=== PATIENT | male | born 1970 | race Caucasian/White ===

== ENCOUNTER 2016-08-28 15:55 | Emergency (ER) | payer BC ==
[~2016-08-28] VITALS: Ht 167.6 cm; Wt 84.4 kg
[~2016-08-28 15:55] MED LIST: LEVO200T PO; LEVO25TA PO
[2016-08-28 15:57] VITALS: TEMP 37.6; Ht 167.6 cm; Wt 84.4 kg
[2016-08-28] MEDS ORDERED: ONDANSETRON INJ 2 MG/ML 2 ML VIAL IV STA (16:19)
[2016-08-28] MEDS ORDERED: CEFTRIAXONE SOD INJ 1 GM in DEXTROSE 5% ADD-VANTAGE 50ML 50 ML IV STA (16:19)
[2016-08-28] MEDS ORDERED: MoRPHine SULFATE 4 MG/ML 1 ML CARP\\VIAL IV STA (16:19)
[2016-08-28] MEDS ORDERED: SODIUM CHLORIDE 0.9% 1000ML 1,000 ML IV ONE (16:30)
[2016-08-28] MEDS ORDERED: CEFTRIAXONE SOD INJ 1 GM ADDVIAL ONE (16:57)
--- NOTE | 2016-08-28 17:02 | DIAGNOSTIC IMAGING REPORT ---
RIGHT KNEE 3 VIEWS CLINICAL HISTORY: R knee infection Right COMPARISON: None. DISCUSSION: The bones and joint spaces appear intact. There is no evidence of fracture, dislocation or bony disease. Considerable pretibial and to lesser extent prepatellar soft tissue edema. IMPRESSION: Soft tissue edema. No acute bony abnormality Electronically signed by: Elliot Cool M.D. 08/28/2016 5:01 PM Dictated Date/Time: 08/28/2016 5:00 PM
[2016-08-28 17:08] LABS: BASO % 0.3 %; BASO ABS # 0.03 K/uL (0-0.2); COMPLETE YES; EOS % 1.3 %; HEMATOCRIT 42.3 % (42-52); IG% 0.2 %; LYMPH % 18.4 %; LYMPH ABS # 2.14 K/uL (1.2-3.4); MEAN CELL VOLUME 84.8 fL (80-100); MEAN CORPUSCULAR HEMOGLOBIN 29.3 pg (25-34); MEAN CORPUSCULAR HGB CONC 34.5 g/dl (32-36); MEAN PLATELET VOLUME 9.8 fL (7.4-10.4); MONO % 11.3 %; NEUT % 68.5 %; PLATELET COUNT 186 K/uL (130-400); RED BLOOD COUNT 4.99 M/uL (4.7-6.1); WHITE BLOOD COUNT 11.63 K/uL (4.8-10.8)
[2016-08-28] MEDS ORDERED: XYLOCAINE 1%/SOD BICARB 20 ML VIAL INFIL ONE (17:15)
[2016-08-28 17:28] LABS: BUN/CREATININE RATIO 11.7 (10-20); CREATININE 1.3 mg/dl (0.60-1.40); POTASSIUM 3.8 mmol/L (3.5-5.1)
[2016-08-28 18:00] VITALS: BP 151/79; PULSE 96; O2SAT 97
[2016-08-28] MEDS ORDERED: SULF800T23 PO (18:31)
[2016-08-28] MEDS ORDERED: OXYC-57 PO (18:31)
[2016-08-28] MEDS ORDERED: CEPH500C2 PO (18:31)
[2016-08-28] MEDS ORDERED: OXYCODONE/ACETAMINOPHEN 5-325 TAB PO ONE (18:45)
--- NOTE | 2016-08-28 20:49 | EMERGENCY ROOM VISIT NOTE ---
ED Visit Note First contact with patient: 16:02 CHIEF COMPLAINT: Right swollen knee. HISTORY OF PRESENT ILLNESS: Mr. Bonilla is an 45-year-old white male who ambulates into the ED accompanied by complaining of anterior right knee pain and swelling. 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 Last month he reports he developed swelling over the left anterior knee and drained the swelling after sticking a pin and squeezing his lesion. He goes on to report he noticed a hard tender area in 3 days ago. The area is slowly getting redder, larger, more painful and tender. He does not know of any skin injury preceding the redness but does note he has a lot of soft tissue injuries to his knees because of his job. He reports he came to the hospital today because he was feeling feverish, had a decreased appetite and was not sleeping well. Currently he describes his anterior knee pain as a throbbing sensation. He rates his discomfort 8/10. The pain is nonradiating. His pain worsens with palpation and ambulation. He has not identified any alleviating factors related to the pain. He has not taken a medication for pain prior to arrival at the hospital. He continues to have the associated symptoms as noted above and is also noted some redness over the medial aspect of the anterior knee. He denies other skin eruptions, other skin color changes, cough, wheezing, shortness of breath, chest pain, abdominal pain, nausea, vomiting, right lower extremity weakness/numbness/tingling. REVIEW OF SYSTEMS: All body systems were reviewed with the patient as noted above. PAST MEDICAL HISTORY: Status post surgeries to the lumbar spine, unspecified shoulder and appendicitis. CURRENT MEDICATION: Patient denies. ALLERGIES TO MEDICATION: Patient denies. SOCIAL HISTORY: Patient is currently employed; he feels safe in his home environment; he admits to chewing tobacco and alcohol use. PHYSICAL EXAM: Vital Signs: Date Time Temp Pulse Resp B/P Pulse Ox O2 Delivery O2 Flow Rate FiO2 08/28/16 18:00 96 16 151/79 97 Room Air 08/28/16 15:57 37.6 111 22 137/75 97 Room Air General: 45 year-old white male in moderate distress due to pain, nontoxic appearing, febrile and hemodynamically stable. Neurological: Awake, alert and oriented to person, place and time. Answering questions appropriately and following commands. Skin: Warm, dry and pink. Right Knee: There is an indurated area in the anterior aspect of the knee which measures about 4 cm in diameter. This area is fluctuant without pointing and no drainage. There is a zone of inflammation around it but no lymphangitis. Thorax: Lungs sounds are clear to auscultation and equal bilaterally with symmetrical chest wall movement. No wheezing, rales or rhonchi. No increased respiratory effort. Abdomen: Flat, soft and nontender. Positive bowel sounds in all quadrants. No guarding or rigidity. Right Lower Extremity: Please note soft tissue description above under SKIN. No tenderness over the hip, thigh, lower leg or foot. Patient's knee is in flexion due to pain and he cannot reach full extension and has minimal flexion. Should be noted that the anterior aspect of the knee is also covered with large callus because of his employment. Additionally there is moderate tenderness. I do not appreciate any laxity of the collateral or cruciate ligaments. Negative ballottement test. Positive patellar apprehension test. Unable to perform a bounce test or John's testing due to pain. Throughout the lower leg the skin was warm and pink and capillary refill is brisk. He was intact to light sensations. ED COURSE: Patient is assessed as noted above. Laboratory Testing: Test 08/28/16 17:00 Range/Units White Blood Count 11.63 4.8-10.8 K/uL Red Blood Count 4.99 4.7-6.1 M/uL Hemoglobin 14.6 14.0-18.0 g/dL Hematocrit 42.3 42-52 % Mean Corpuscular Volume 84.8 80-100 fL Mean Corpuscular Hemoglobin 29.3 25-34 pg Mean Corpuscular Hemoglobin Concent 34.5 32-36 g/dl Platelet Count 186 130-400 K/uL Mean Platelet Volume 9.8 7.4-10.4 fL Neutrophils (%) (Auto) 68.5 % Lymphocytes (%) (Auto) 18.4 % Monocytes (%) (Auto) 11.3 % Eosinophils (%) (Auto) 1.3 % Basophils (%) (Auto) 0.3 % Neutrophils # (Auto) 7.97 1.4-6.5 K/uL Lymphocytes # (Auto) 2.14 1.2-3.4 K/uL Monocytes # (Auto) 1.32 0.11-0.59 K/uL Eosinophils # (Auto) 0.15 0-0.5 K/uL Basophils # (Auto) 0.03 0-0.2 K/uL RDW Standard Deviation 38.9 36.4-46.3 fL RDW Coefficient of Variation 12.7 11.5-14.5 % Immature Granulocyte % (Auto) 0.2 % Immature Granulocyte # (Auto) 0.02 0.00-0.02 K/uL Sodium Level 142 136-145 mmol/L Potassium Level 3.8 3.5-5.1 mmol/L Chloride Level 107 98-107 mmol/L Carbon Dioxide Level 29 21-32 mmol/L Anion Gap 6.0 3-11 mmol/L Blood Urea Nitrogen 15 7-18 mg/dl Creatinine 1.30 0.60-1.40 mg/dl Est Creatinine Clear Calc Drug Dose 73.9 ml/min Estimated GFR () 76.9 Estimated GFR (Non- 66.4 BUN/Creatinine Ratio 11.7 10-20 Random Glucose 108 70-99 mg/dl Calcium Level 9.0 8.5-10.1 mg/dl Knee X-Rays: Was read by myself and the radiologist showing no acute fractures or dislocations. Moderate pretibial and prepatellar soft tissue edema. No joint effusion was noted. Incision and Drainage: Verbal consent was obtained after the risks and benefits were explained. The skin was prepped with betadine and a sterile field set. The area surrounding the abscess was anesthetized with 7.6 ml of 1% buffered lidocaine. The 2 areas of abscess was incised with scalpel. Blood and clear fluid was drained but no purulent material. The abscess cavity was sharply dissected with iris scissors and still no purulent material was found. Copious irrigation was performed using sterile saline. Hemostasis was achieved. A sterile dressing and Kaiser bandage was applied. No complications and the patient tolerated the procedure well. Patient was hydrated with normal saline, he received a total of 8 mg of morphine IV for pain and 4 mg of Zofran. Additionally he received 1 g of ceftriaxone IV for antibiotic coverage. Prior to departure he also received 1 Percocet tablet 5/325 mg tablets by mouth. Patient's case was reviewed with Dr. Hernández; we agreed on diagnostic approach, treatment, disposition and plan. Patient was instructed on nonweight bearing crutch use. Patient was educated about his condition and instructed on his treatment plan; he verbalized understanding and agreement with this plan. CLINICAL IMPRESSION: Right knee cellulitis. DISPOSITION: Patient discharged to home in stable condition accompanied by his ; prior to departure he was reassessed and rated his discomfort 11/18. PLAN: Patient was prescribed Keflex 500 mg 4 times a day and Bactrim DS 2 times a day for 10 days. Comfort measures including rest, ice, elevation, Kaiser bandage and splint use as well as a sliding pain medication scale of ibuprofen, acetaminophen and Percocet were discussed with the patient. Patient was warned on proper precautions with narcotic use in the state database was reviewed and no red flags were noted. Patient did report he had a follow-up appointment already scheduled with his PCP on Tuesday and I encouraged him to continue that appointment and if he was unable to keep it to return to the ED in 36-48 hours for recheck. Patient was encouraged return the ED sooner for uncontrolled pain, fevers, redness or red streaking outside of his Kaiser bandage or any new/concerning symptoms.
[2016-08-31] MEDS ORDERED: ASPEC81 PO (17:33)
[2016-08-31] MEDS ORDERED: OXYC-57 PO (17:33)
[2016-08-31] MEDS ORDERED: LPT20 PO (17:33)
[2016-08-31] MEDS ORDERED: SYN50 PO (17:33)
[2016-08-31] MEDS ORDERED: DOXY100C IV (18:24)
[2016-10-29] MEDS ORDERED: NAPR1TAB9 PO (15:11)
[2016-10-29] MEDS ORDERED: ATOR-22 PO (15:11)
[2016-10-29] MEDS ORDERED: LEVO50TA6 PO (15:11)
[2016-10-29] MEDS ORDERED: ASPI81TA28 PO (15:11)
[2016-10-29] MEDS ORDERED: TRAM-10 PO (16:03)
[2016-11-25] MEDS ORDERED: CYCL10TA6 PO (06:27)
[2016-11-25] MEDS ORDERED: OXYC-57 PO (08:35)
[2016-11-25] MEDS ORDERED: CEPH500C2 PO (08:35)
[2016-11-25] MEDS ORDERED: ASPI325T45 PO (08:35)
== END 2016-08-28 18:52 | disposition home or self-care (01) ==
LOC: C.EDB 15:56 → C.EDD 18:52
DX: L03.115 Cellulitis of right lower limb (principal); F17.200 Nicotine dependence, unspecified, uncomplicated

== ENCOUNTER 2016-08-29 22:15 | Inpatient (IN) | payer BC ==
[~2016-08-29] VITALS: Ht 167.6 cm; Wt 83.7 kg
[~2016-08-29 22:15] MED LIST changes: +CEPH500C2 PO; -LEVO200T PO; -LEVO25TA PO; +OXYC-57 PO; +SULF800T23 PO
[2016-08-29] MEDS ORDERED: ONDANSETRON INJ 2 MG/ML 2 ML VIAL IV STA (22:40)
[2016-08-29] MEDS ORDERED: HYDROmorphone INJ 1 MG/ML SYR IV STA (22:40)
[2016-08-29] MEDS ORDERED: SODIUM CHLORIDE 0.9% 1000ML 1,000 ML IV ONE (22:45)
[2016-08-29 23:25] LABS: BASO % 0.2 %; BASO ABS # 0.02 K/uL (0-0.2); COMPLETE YES; EOS % 2.7 %; HEMATOCRIT 40.2 % (42-52); IG% 0.1 %; LYMPH % 27.1 %; LYMPH ABS # 2.29 K/uL (1.2-3.4); MEAN CELL VOLUME 83.6 fL (80-100); MEAN CORPUSCULAR HEMOGLOBIN 28.3 pg (25-34); MEAN CORPUSCULAR HGB CONC 33.8 g/dl (32-36); MEAN PLATELET VOLUME 9.8 fL (7.4-10.4); MONO % 10.8 %; NEUT % 59.1 %; PLATELET COUNT 189 K/uL (130-400); RED BLOOD COUNT 4.81 M/uL (4.7-6.1); WHITE BLOOD COUNT 8.46 K/uL (4.8-10.8)
[2016-08-29 23:46] LABS: BUN/CREATININE RATIO 11.4 (10-20); CALCIUM 8.8 mg/dl (8.5-10.1); CREATININE 1.3 mg/dl (0.60-1.40); POTASSIUM 3.8 mmol/L (3.5-5.1)
[2016-08-29 23:49] LABS: C-REACTIVE PROTEIN 13.1 mg/dl (0-0.29)
[2016-08-30] MEDS ORDERED: PIPERACILLIN/TAZOBACTAM 4.5 GM/100ML D5W IV STA (00:05)
[2016-08-30 00:14] LABS: LYME DISEASE AB IGG NEG (NEG); LYME DISEASE AB IGM NEG (NEG)
[2016-08-30] MEDS ORDERED: SODIUM CHLORIDE 0.9% 1000ML 1,000 ML IV ONE (00:15)
[2016-08-30] MEDS ORDERED: SODIUM CHLORIDE 0.9% IV ONE (00:15)
[2016-08-30] MEDS ORDERED: DAPTOMYCIN IV ONE (00:15)
[2016-08-30 00:30] VITALS: BP 122/73; PULSE 86; TEMP 37; Ht 167.6 cm; Wt 83.7 kg
[2016-08-30 00:43] LABS: MAGNESIUM 2.3 mg/dl (1.8-2.4)
[2016-08-30 00:59] LABS: THYROID STIMULATING HORMONE 19.2 uIu/ml (0.300-4.500)
[2016-08-30] MEDS ORDERED: SODIUM CHLORIDE 0.45% 1000ML 1,000 ML IV SCH (01:00)
[2016-08-30] MEDS ORDERED: ONDANSETRON INJ 2 MG/ML 2 ML VIAL IV PRN (01:00)
[2016-08-30] MEDS ORDERED: KETOROLAC TROMETHAMINE 30 MG/ML VIAL IV PRN (01:00)
[2016-08-30] MEDS ORDERED: MoRPHine SULFATE 4 MG/ML 1 ML CARP\\VIAL IV PRN (01:00)
[2016-08-30] MEDS ORDERED: ACETAMINOPHEN 325 MG TAB PO PRN (01:00)
[2016-08-30] MEDS ORDERED: SODIUM CHLORIDE 0.45% 1000ML 1,000 ML IV ONE (02:15)
--- NOTE | 2016-08-30 02:30 | EMERGENCY ROOM VISIT NOTE ---
History First contact with patient: 22:24 Chief Complaint: SWELLING TO EXTREMITY Stated Complaint: SEPSIS History of Present Illness The patient is a 45 year old male who presents to the Emergency Room with complaints of worsening pain and swelling to his right knee and right lower extremity. The patient was seen and evaluated yesterday at this facility with similar complaints. The patient was found to have a cellulitis of the right knee and was placed on Bactrim and Keflex. The patient was given oxycodone and crutches and asked to return to the emergency department for reevaluation today. The patient states that he has persistent pain that worsens with bending of the knee. He does not report fever or chills at home. He does kneel on the ground for work, and this may be contributing to his symptoms. He rates his current discomfort an 8/10. Review of Systems More than 10 systems were reviewed and otherwise negative with the exception of history of present illness. Past Medical/Surgical History Medical Problems: (1) Bursitis, knee (2) Hypothyroid (3) Sepsis Surgical Problems: (1) S/P lumbar spinal fusion Family History TIAs FATHER Social History Smoking Status: Never Smoker Alcohol Use: occasionally Marital Status: Housing Status: lives with family Occupation Status: employed Current/Historical Medications Scheduled Cephalexin Monohydrate (Keflex), 500 MG PO QID Sulfa/Trimethoprim (Bactrim Ds 800MG/160MG), 1 TAB PO BID Scheduled PRN Oxycodone/Acetaminophen 5MG/325MG (Percocet 5MG/325MG), 1-2 TABS PO Q6H PRN for Pain Allergies Coded Allergies: Adhesives (Verified Allergy, Intermediate, KEITH SKIN, 08/29/16) Physical Exam Vital Signs Date Time Temp Pulse Resp B/P Pulse Ox O2 Delivery O2 Flow Rate FiO2 08/30/16 00:26 84 16 149/77 94 Room Air 08/29/16 22:17 37.1 106 18 132/80 97 Room Air Pain Rating (0-10): 4.0 Physical Exam VITALS: Vitals are noted on the nurse's note and reviewed by myself. Vital signs stable. GENERAL: Well-developed, well-nourished, and a white male who appears moderately uncomfortable but cooperative. HEAD: Normocephalic atraumatic. HEART: Regular rate and rhythm without murmurs gallops or rubs. LUNGS: Clear to auscultation bilaterally without wheezes, rales or rhonchi. No retractions or accessory muscle use. MUSCULOSKELETAL: There is a large area of cellulitis around the anterior right. This essentially covers the distal third of the right upper leg and the proximal third of the right lower leg. There is an area over the right tibial tuberosity that may be fluctuant. The patient does have some range of motion, however he is unable to fully bend the knee secondary to discomfort. No palpable cords appreciated. Neurovascular status is intact distally. NEURO: Patient was alert and oriented to person place and time. CN II through XII grossly intact. Medical Decision & Procedures Laboratory Results 08/29/16 23:09 Red Blood Count 4.81, Mean Corpuscular Volume 83.6, Mean Corpuscular Hemoglobin 28.3, Mean Corpuscular Hemoglobin Concent 33.8, Mean Platelet Volume 9.8, Neutrophils (%) (Auto) 59.1, Lymphocytes (%) (Auto) 27.1, Monocytes (%) (Auto) 10.8, Eosinophils (%) (Auto) 2.7, Basophils (%) (Auto) 0.2, Neutrophils # (Auto ) 5.00, Lymphocytes # (Auto) 2.29, Monocytes # (Auto) 0.91, Eosinophils # (Auto ) 0.23, Basophils # (Auto) 0.02 08/29/16 23:09 Test 08/29/16 23:09 White Blood Count 8.46 K/uL (4.8-10.8) Red Blood Count 4.81 M/uL (4.7-6.1) Hemoglobin 13.6 g/dL (14.0-18.0) Hematocrit 40.2 % (42-52) Mean Corpuscular Volume 83.6 fL (80-100) Mean Corpuscular Hemoglobin 28.3 pg (25-34) Mean Corpuscular Hemoglobin Concent 33.8 g/dl (32-36) Platelet Count 189 K/uL (130-400) Mean Platelet Volume 9.8 fL (7.4-10.4) Neutrophils (%) (Auto) 59.1 % Lymphocytes (%) (Auto) 27.1 % Monocytes (%) (Auto) 10.8 % Eosinophils (%) (Auto) 2.7 % Basophils (%) (Auto) 0.2 % Neutrophils # (Auto) 5.00 K/uL (1.4-6.5) Lymphocytes # (Auto) 2.29 K/uL (1.2-3.4) Monocytes # (Auto) 0.91 K/uL (0.11-0.59) Eosinophils # (Auto) 0.23 K/uL (0-0.5) Basophils # (Auto) 0.02 K/uL (0-0.2) RDW Standard Deviation 37.2 fL (36.4-46.3) RDW Coefficient of Variation 12.2 % (11.5-14.5) Immature Granulocyte % (Auto) 0.1 % Immature Granulocyte # (Auto) 0.01 K/uL (0.00-0.02) Erythrocyte Sedimentation Rate 33 mm/hr (0-14) Anion Gap 9.0 mmol/L (3-11) Est Creatinine Clear Calc Drug Dose 73.6 ml/min Estimated GFR () 76.9 Estimated GFR (Non- 66.4 BUN/Creatinine Ratio 11.4 (10-20) Calcium Level 8.8 mg/dl (8.5-10.1) Magnesium Level 2.3 mg/dl (1.8-2.4) Total Bilirubin 0.3 mg/dl (0.2-1) Aspartate Amino Transf (AST/SGOT) 16 U/L (15-37) Alanine Aminotransferase (ALT/SGPT) 27 U/L (12-78) Alkaline Phosphatase 94 U/L (45-117) C-Reactive Protein 13.10 mg/dl (0-0.29) Total Protein 7.3 gm/dl (6.4-8.2) Albumin 3.6 gm/dl (3.4-5.0) Globulin 3.7 gm/dl (2.5-4.0) Albumin/Globulin Ratio 1.0 (0.9-2) Thyroid Stimulating Hormone (TSH) 19.200 uIu/ml (0.300-4.500) Lyme Disease IgG Antibody NEG (NEG) Lyme Disease IgM Antibody NEG (NEG) Medications Administered Medications (Trade) Dose Ordered Sig/Tsering Route Start Time Stop Time Status Last Admin Dose Admin Sodium Chloride (Nss 1000ml) 1,000 ml @ 999 mls/hr Q1H1M ONCE IV 08/29/16 22:45 08/29/16 23:45 DC 08/29/16 23:15 999 MLS/HR Hydromorphone HCl (Dilaudid Inj) 1 mg NOW STAT IV 08/29/16 22:40 08/29/16 22:42 DC 08/29/16 23:15 1 MG Ondansetron HCl (Zofran Inj) 4 mg NOW STAT IV 08/29/16 22:40 08/29/16 22:42 DC 08/29/16 23:15 4 MG Piperacillin Sod/ Tazobactam Sod (Zosyn Iv) 4.5 gm NOW STAT IV 08/30/16 00:05 08/30/16 00:06 DC 08/30/16 00:24 4.5 GM ED Course Physical exam and history were performed. Nursing notes and EMR were reviewed. Patient appears to have a worsening right lower extremity cellulitis when compared to yesterday. On examination the patient appears to have a fairly large area of cellulitis with possible fluctuant area. I attempted to de-roof this area, but did not achieve results with any purulent material. Incision and drainage was attempted yesterday with no results either. I am unsure if the infection is deep, but additional I and D was not attempted. IV access was then established and labs were obtained. The patient was hydrated with normal saline and given IV Dilaudid for comfort. The patient's blood work is as above and was reviewed. While he does not have an elevated white blood cell count his inflammatory markers are markedly elevated. Additionally his lactic acid is elevated as well with blood cultures pending. I have concern the patient has sepsis secondary to his infection and he was started on IV daptomycin and IV Zosyn here in the department. The case was discussed with the on-call [facility] hospitalist, who agreed to evaluate the patient here in the department. Please see their dictation for further patient course, plan, and disposition. The chart was completed utilizing [employer] Speech Voice Recognition Software. Grammatical errors, random word insertions, pronoun errors, and incomplete sentences are an occasional consequence of this system due to software limitations, ambient noise, and hardware issues. Any formal questions or concerns about the content, text, or information contained within the body of this dictation should be directly addressed to the provider for clarification. . Medical Decision Differential diagnosis: Etiologies such as sepsis, UTI, pneumonia, metabolic, electrolyte abnormalities , cardiac sources, intracerebral event, toxicologic, neurologic, as well as others were entertained. Impression Primary Impression: Sepsis Additional Impression: Swelling of right extremity Departure Information Dispostion Still a Patient Condition FAIR Referrals Mitra Valles D.O. (PCP) Forms WORK / SCHOOL INSTRUCTIONS, HOME CARE DOCUMENTATION FORM, IMPORTANT VISIT INFORMATION Patient Instructions My [facility] Problem Qualifiers
[2016-08-30] MEDS: DOXYCYCLINE IV 100 MG in DEXTROSE 5% 100ML 100 ML IV SCH ×2 (03:55→16:52)
--- NOTE | 2016-08-30 04:37 | HISTORY & PHYSICAL EXAMINATION ---
DATE OF ADMISSION: 08/30/2016 PRIMARY CARE DOCTOR: Dr. Valles. CHIEF COMPLAINT: Right knee pain and swelling. HISTORY OF PRESENT ILLNESS: History obtained from patient and records. Medical history significant for TIA, hypothyroidism. Recent confinement October 2013 for possible TIA. PX dcd on ASA and Lipitor. Few days ago, patient noted right knee swelling with achy pain, redness. Seen at the Emergency Room. X-ray showed soft tissue edema. Impression was right knee cellulitis. Patient discharged on Keflex, Bactrim, compliant with meds. Worsening swelling, worse with moving around, low grade fever at home. MEDICAL HISTORY: As above. SURGERIES: back surgery, shoulder surgery, appendectomy HOME MEDICATIONS: Include Bactrim, Keflex, Percocet (Levothyroxine 200 mcg, ASA, Lipitor as per outpx records) ALLERGIES: OXYCODONE, ADHESIVE. FAMILY HISTORY: TIA and COPD. PERSONAL AND SOCIAL HISTORY: Past tobacco abuse. occ intake of alcoholic beverages. [employer] work. REVIEW OF SYSTEMS: As per HPI, all other ROS negative. PHYSICAL EXAMINATION: VITAL SIGNS: Blood pressure was noted to be 132/80, pulse rate 106, RR 18, T 37, O2 sats 97 on room air. GENERAL: Noted to be slightly uncomfortable, no respiratory distress, looks older for stated age. SKIN: Normal color. HEENT: Alopecia. [place] palpebral conjunctivae. Dry mucosa. NECK: No JVD. supple CHEST: Clear to auscultation. HEART: Regular rate and rhythm. ABDOMEN: Soft. EXTREMITIES: Tender swelling on the anterior aspect of the knee with some extension to the sides. Some limitation with stretch, warm to touch. NEUROLOGIC: No gross focality. LABS: Hemoglobin was noted to be 13.6, hematocrit 48.2, white cells 8.4, platelets 189. Sodium 140 BUN 50, creatinine 1.3, glucose 100 TSH 19 Initial lactic acid 2.4. ASSESSMENT: 1. RLE swelling prepatellar bursitis with secondary cellulitis failed outpatient treatment patient not septic. Rule out deep venous thrombosis. 2. Hypothyroidism. TSH elevated. medication non-compliance 3. hx Transient ischemic attack px admits to ASA, statin non-compliance PLAN: GMF analgesia Doxycycline trial local measures for swelling Orthopedics consult RE R knee swelling RLE Dopplers to rule out DVT. Px agreeable to resuming prior ASA, statin, and Levothyroxine home meds TSH recheck outpx next month DVT prophylaxis, Lovenox subQ. Full code. MTDD
[2016-08-30] MEDS: LEVOTHYROXINE 50 MCG TAB PO SCH (05:45)
[2016-08-30] MEDS: IBUPROFEN 200 MG TAB PO PRN ×2 (05:46→14:12)
[2016-08-30] MEDS ORDERED: LEVOTHYROXINE 200 MCG TAB PO SCH (06:30)
[2016-08-30 06:43] LABS: BASO % 0.4 %; BASO ABS # 0.03 K/uL (0-0.2); COMPLETE YES; EOS % 2.1 %; HEMATOCRIT 37.7 % (42-52); IG% 0.1 %; LYMPH % 33.9 %; LYMPH ABS # 2.77 K/uL (1.2-3.4); MEAN CELL VOLUME 84.5 fL (80-100); MEAN CORPUSCULAR HEMOGLOBIN 28.7 pg (25-34); MONO % 8.8 %; NEUT % 54.7 %; PLATELET COUNT 163 K/uL (130-400); RED BLOOD COUNT 4.46 M/uL (4.7-6.1); WHITE BLOOD COUNT 8.17 K/uL (4.8-10.8)
[2016-08-30 06:52] LABS: PROTHROMBIN TIME (PATIENT) 11.1 SECONDS (9.0-12.0)
--- NOTE | 2016-08-30 07:22 | DIAGNOSTIC IMAGING REPORT ---
RIGHT LOWER EXTREMITY VENOUS DOPPLER CLINICAL HISTORY: Right lower extremity swelling. COMPARISON STUDY: No previous studies for comparison. TECHNIQUE: Sonography of the deep venous system of the right lower extremity was performed. Compression and augmentation were evaluated. FINDINGS: The common femoral, superficial femoral and popliteal veins were compressible. Augmentation was normal. Flow was shown within the deep calf vessels. IMPRESSION: No evidence of deep venous thrombus within the right lower extremity. Electronically signed by: Sameer Addison M.D. 08/30/2016 7:21 AM Dictated Date/Time: 08/30/2016 7:20 AM
[2016-08-30 07:51] VITALS: BP 106/69; PULSE 67; TEMP 36.5; O2SAT 95
[2016-08-30 08:00] VITALS: O2SAT 95
[2016-08-30] MEDS: ATORVASTATIN 20 MG TAB PO SCH (08:07)
[2016-08-30] MEDS: ASPIRIN 81 MG ECTAB PO SCH (08:07)
[2016-08-30] MEDS: ENOXAPARIN 40 MG/0.4 ML SYR SQ SCH (10:57)
[2016-08-30] MEDS ORDERED: NURSING VERBAL MED ORDER ONE (13:15)
--- NOTE | 2016-08-30 14:40 | Progress Note ---
Medicine Progress Note Date & Time of Visit: August 30, 2016 at 14:16. Subjective Pt was seen and examined Lying in bed with no distress Pt said that the pain in the right knee slightly improves denies any chest pain, palpitation, dizziness and sob Objective Last 8 Hrs Date Time Temp Pulse Resp B/P Pulse Ox O2 Delivery O2 Flow Rate FiO2 08/30/16 08:00 95 08/30/16 07:51 36.5 67 18 106/69 95 Physical Exam: General- No acute distress Head- atraumatic Eyes- PERRL, EOMI ENT- oropharynx clear Neck- supple, no JVD Lungs- clear to auscultation, No wheezing Heart- regular rhythm; no murmur Abdomen- normal bowel sounds, soft Extremities- no calf tenderness, right knee tenderness and swelling Neuro- alert, oriented x 3; PERRL, EOMI; no facial palsy; no dysarthria Skin- warm & dry Laboratory Results: Last 24 Hours Test 08/29/16 23:09 08/30/16 01:10 08/30/16 06:35 White Blood Count 8.46 K/uL 8.17 K/uL Red Blood Count 4.81 M/uL 4.46 M/uL Hemoglobin 13.6 g/dL 12.8 g/dL Hematocrit 40.2 % 37.7 % Mean Corpuscular Volume 83.6 fL 84.5 fL Mean Corpuscular Hemoglobin 28.3 pg 28.7 pg Mean Corpuscular Hemoglobin Concent 33.8 g/dl 34.0 g/dl Platelet Count 189 K/uL 163 K/uL Mean Platelet Volume 9.8 fL 10.0 fL Neutrophils (%) (Auto) 59.1 % 54.7 % Lymphocytes (%) (Auto) 27.1 % 33.9 % Monocytes (%) (Auto) 10.8 % 8.8 % Eosinophils (%) (Auto) 2.7 % 2.1 % Basophils (%) (Auto) 0.2 % 0.4 % Neutrophils # (Auto) 5.00 K/uL 4.47 K/uL Lymphocytes # (Auto) 2.29 K/uL 2.77 K/uL Monocytes # (Auto) 0.91 K/uL 0.72 K/uL Eosinophils # (Auto) 0.23 K/uL 0.17 K/uL Basophils # (Auto) 0.02 K/uL 0.03 K/uL RDW Standard Deviation 37.2 fL 38.3 fL RDW Coefficient of Variation 12.2 % 12.4 % Immature Granulocyte % (Auto) 0.1 % 0.1 % Immature Granulocyte # (Auto) 0.01 K/uL 0.01 K/uL Erythrocyte Sedimentation Rate 33 mm/hr Sodium Level 143 mmol/L Potassium Level 3.8 mmol/L Chloride Level 107 mmol/L Carbon Dioxide Level 27 mmol/L Anion Gap 9.0 mmol/L Blood Urea Nitrogen 15 mg/dl Creatinine 1.30 mg/dl Est Creatinine Clear Calc Drug Dose 73.6 ml/min Estimated GFR () 76.9 Estimated GFR (Non- 66.4 BUN/Creatinine Ratio 11.4 Random Glucose 127 mg/dl Lactic Acid Level 2.4 mmol/L 1.4 mmol/L Calcium Level 8.8 mg/dl Magnesium Level 2.3 mg/dl Total Bilirubin 0.3 mg/dl Aspartate Amino Transf (AST/SGOT) 16 U/L Alanine Aminotransferase (ALT/SGPT) 27 U/L Alkaline Phosphatase 94 U/L C-Reactive Protein 13.10 mg/dl Total Protein 7.3 gm/dl Albumin 3.6 gm/dl Globulin 3.7 gm/dl Albumin/Globulin Ratio 1.0 Thyroid Stimulating Hormone (TSH) 19.200 uIu/ml Thyroxine (T4) 4.6 mcg/dl Lyme Disease IgG Antibody NEG Lyme Disease IgM Antibody NEG Prothrombin Time 11.1 SECONDS Prothromb Time International Ratio 1.0 Date/Time Source Procedure Growth Status 08/29/16 23:09 Blood Blood Culture Pending Received 08/29/16 23:00 Blood Blood Culture Pending Received Assessment & Plan Right knee pain and swelling Possible due to prepatellar bursitis with possible secondary cellulitis Lactic acid elevated on admission Afebrile and no leukocytosis Elevated ESR blood cx pending Received IV Zosyn and daptomycin in the ER He had Incision and Drainage done on 08/28: blood and clear fluid was drained but no purulent material Starting on Doxycycline Continue pain control prn venous doppler of LE negative for DVT Ortho consulting- Pending . Hypothyroidism. TSH 19 Non compliant ( has not been taking levothyroxine) starting on levothyroxine 50mg check TSH in 6 to 8 weeks with PCP Hx TIA continue asa, non compliance with statin continue statin stable DVT px on lovenox subq CODE STATUS FULL CODE Consultants: Ortho Current Inpatient Medications: Current Inpatient Medications Medications (Trade) Dose Ordered Sig/Tsering Route Start Time Stop Time Status Last Admin Dose Admin Doxycycline Hyclate/Dextrose (Vibramycin IV/ D5 100ml) 110 ml @ 50 mls/hr Q12H IV 08/30/16 04:00 09/09/16 03:59 08/30/16 03:55 50 MLS/HR Ibuprofen (Advil Tab) 400 mg Q6H PRN PO 08/30/16 01:00 09/29/16 00:59 08/30/16 14:12 400 MG Ketorolac Tromethamine (Toradol Inj) 30 mg Q6H PRN IV 08/30/16 01:00 09/04/16 00:59 08/30/16 10:56 30 MG Morphine Sulfate (MoRPHine SULFATE INJ) 4 mg Q6H PRN IV 08/30/16 01:00 09/13/16 00:59 Ondansetron HCl (Zofran Inj) 4 mg Q6H PRN IV 08/30/16 01:00 09/29/16 00:59 Oxycodone/ Acetaminophen (Percocet 5-325mg Tab) pain not relieved by ot... Q6H PRN PO 08/30/16 01:00 09/13/16 00:59 Enoxaparin Sodium (Lovenox Inj) 40 mg Q24H SQ 08/30/16 09:00 09/29/16 08:59 08/30/16 10:57 40 MG Acetaminophen (Tylenol Tab) 650 mg Q4H PRN PO 08/30/16 01:00 09/29/16 00:59 Aspirin (Ecotrin Tab) 81 mg QAM PO 08/30/16 09:00 09/29/16 08:59 08/30/16 08:07 81 MG Levothyroxine Sodium (Synthroid Tab) 50 mcg DAILYBB PO 08/30/16 06:30 09/29/16 06:29 08/30/16 05:45 50 MCG Atorvastatin Calcium (Lipitor Tab) 20 mg QAM PO 08/30/16 09:00 09/29/16 08:59 08/30/16 08:07 20 MG
[2016-08-30 15:51] VITALS: BP 125/77; PULSE 75; TEMP 36.6; O2SAT 97
--- NOTE | 2016-08-31 00:39 | ORTHOPEDIC CONSULTATION ---
DATE OF CONSULTATION: 08/30/2016 CHIEF COMPLAINT: Right knee pain and swelling. 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 The right knee which is in question began swelling and more painful a few days prior. Apparently there was an attempted incision and drainage in the Emergency Room on 08/28/2016. The patient was started on Keflex and Bactrim, but did not improve over a period of 24 hours and was admitted last night for increased cellulitis of the leg. MEDICAL AND SURGICAL HISTORY: See recent admission history and physical. ALLERGIES: OXYCODONE. PHYSICAL EXAMINATION: The patient is lying comfortably in bed. He has a Band-Aid over the knee at this point. Inspection of the skin at this time shows significant decrease in cellulitis in the thigh and the lower leg (family also notes significant improvement in cellulitis in the last 12 hours). There is a very thickened prepatellar bursa with thickened material, mild amount of fluctuance. I cannot express any fluid. It is mildly red. Knee shows active range of motion from 0 to about 100 with only mild discomfort. Neurological and vascular functions are intact. IMPRESSION: Probable septic prepatellar bursitis. PLAN: At this point, the patient seems to have responded very well to just a few doses of IV antibiotics (it is like he is on this likely). I would recommend treating him for another 24 hours as an inpatient. If he continues to improve with IV antibiotics, would consider an outpatient course of 7-10 days of IV antibiotics. If the patient regresses at any point, he would need open excision and drainage of the prepatellar bursa. However, again at this time based on the response to 2 doses of medication compared to his outpatient treatment, I feel that there is a good chance he will resolve with just IV treatment. We will follow him during the hospital stay with you. Thank you for this consult. MARILYN
[2016-08-31 01:11] VITALS: BP 122/76; PULSE 65; TEMP 36.8; O2SAT 95
[2016-08-31] MEDS: DOXYCYCLINE IV 100 MG in DEXTROSE 5% 100ML 100 ML IV SCH ×2 (03:14→15:52)
[2016-08-31] MEDS: LEVOTHYROXINE 50 MCG TAB PO SCH (05:53)
[2016-08-31 07:28] VITALS: BP 119/73; PULSE 68; TEMP 36.8; O2SAT 97
[2016-08-31] MEDS: ATORVASTATIN 20 MG TAB PO SCH (07:47)
[2016-08-31] MEDS: ASPIRIN 81 MG ECTAB PO SCH (07:47)
[2016-08-31] MEDS: ENOXAPARIN 40 MG/0.4 ML SYR SQ SCH (07:47)
[2016-08-31 08:00] VITALS: O2SAT 97
--- NOTE | 2016-08-31 15:26 | Orthopedic Progress Note ---
Orthopedic Progress Note Date of Service August 31, 2016. Subjective Reports: feeling well, Denies: SOB, calf pain, chest pain, light headedness, nausea / vomiting Additional Notes: SEEMS TO BE RESPONDING WELL TO IV ABX. SWELLING AND REDNESS IMPROVED TODAY. HE HAS A PINHOLE OPENING WITH SOME MILD BLOODY DRAINAGE. Objective calves soft nontender, N/V intact, A&O x3, toes mobile MODERATE EDEMA OF THE RIGHT PREPATELLAR BURSA. NO ERYTHEMA TODAY. SCANT DRAINAGE ON BANDAGE. NO PURULENCE NOTED. ROM IMPROVING. Date Time Temp Pulse Resp B/P Pulse Ox O2 Delivery O2 Flow Rate FiO2 08/31/16 08:00 97 08/31/16 07:28 36.8 68 18 119/73 97 08/31/16 01:11 36.8 65 18 122/76 95 Room Air 08/31/16 00:00 Room Air 08/30/16 16:00 Room Air 08/30/16 15:51 36.6 75 18 125/77 97 Room Air Assessment & Plan Assessment: PREPATELLAR BURSITIS Plan: RESPONDING TO IV ANTIBIOTICS PATIENT IS SET UP WITH [facility] FOR 7 DAYS OF HOME IV'S LIKELY DISCHARGE TO HOME TODAY. CAN FOLLOW UP WITH ORTHO ON PRN BASIS. WILL SIGN OFF. THANK YOU FOR THE CONSULTATION.
[2016-08-31] MEDS: OXYCODONE/ACETAMINOPHEN 5-325 TAB PO PRN ×2 (15:52→17:19)
--- NOTE | 2016-08-31 17:20 | Progress Note ---
Medicine Progress Note Date & Time of Visit: August 31, 2016 at 17:09. Subjective Pt was seen and examined Sitting in bed comfortable with no distress working in his laptop Pt said that he feels ok the redness and the swelling improved significantly Pt said that the pain is much better Denies any chest pain, palpitation, dizziness and SOB Objective Physical Exam: General- No acute distress Head- atraumatic Eyes- PERRL, EOMI ENT- oropharynx clear Neck- supple, no JVD Lungs- clear to auscultation, No wheezing Heart- regular rhythm; no murmur Abdomen- normal bowel sounds, soft Extremities- no calf tenderness, right knee tenderness and swelling Neuro- alert, oriented x 3; PERRL, EOMI; no facial palsy; no dysarthria Skin- warm & dry Assessment & Plan Right knee pain and swelling Possible due to prepatellar bursitis with possible secondary cellulitis Lactic acid elevated on admission Afebrile and no leukocytosis Elevated ESR blood cx pending Received IV Zosyn and daptomycin in the ER He had Incision and Drainage done on 08/28: blood and clear fluid was drained but no purulent material Starting on Doxycycline Continue pain control prn venous doppler of LE negative for DVT Ortho consulting- Pending 08/31 Swelling and redness improved significantly afebrile Ortho on board recommended current management Continue IV doxycycline will continue IV doxycycline for 7 to 10 days Picc line placed for outpatient infusion transplant case manager will arranged for the home abx infusion continue pain control prn Blood cx no growth so far clinically improved follow up with ortho prn if not improved or condition worsening Hypothyroidism. TSH 19 Non compliant ( has not been taking levothyroxine) starting on levothyroxine 50mg check TSH in 6 to 8 weeks with PCP Hx TIA continue asa, non compliance with statin continue statin stable DVT px on lovenox subq CODE STATUS FULL CODE Consultants: Ortho Current Inpatient Medications: Current Inpatient Medications Medications (Trade) Dose Ordered Sig/Tsering Route Start Time Stop Time Status Last Admin Dose Admin Doxycycline Hyclate/Dextrose (Vibramycin IV/ D5 100ml) 110 ml @ 50 mls/hr Q12H IV 08/30/16 04:00 09/09/16 03:59 08/31/16 15:52 50 MLS/HR Ibuprofen (Advil Tab) 400 mg Q6H PRN PO 08/30/16 01:00 09/29/16 00:59 08/30/16 14:12 400 MG Ketorolac Tromethamine (Toradol Inj) 30 mg Q6H PRN IV 08/30/16 01:00 09/04/16 00:59 08/30/16 10:56 30 MG Morphine Sulfate (MoRPHine SULFATE INJ) 4 mg Q6H PRN IV 08/30/16 01:00 09/13/16 00:59 Ondansetron HCl (Zofran Inj) 4 mg Q6H PRN IV 08/30/16 01:00 09/29/16 00:59 Oxycodone/ Acetaminophen (Percocet 5-325mg Tab) pain not relieved by ot... Q6H PRN PO 08/30/16 01:00 09/13/16 00:59 08/31/16 15:52 1 TAB Enoxaparin Sodium (Lovenox Inj) 40 mg Q24H SQ 08/30/16 09:00 09/29/16 08:59 08/31/16 07:47 40 MG Acetaminophen (Tylenol Tab) 650 mg Q4H PRN PO 08/30/16 01:00 09/29/16 00:59 Aspirin (Ecotrin Tab) 81 mg QAM PO 08/30/16 09:00 09/29/16 08:59 08/31/16 07:47 81 MG Levothyroxine Sodium (Synthroid Tab) 50 mcg DAILYBB PO 08/30/16 06:30 09/29/16 06:29 08/31/16 05:53 50 MCG Atorvastatin Calcium (Lipitor Tab) 20 mg QAM PO 08/30/16 09:00 09/29/16 08:59 08/31/16 07:47 20 MG
[2016-08-31] MEDS ORDERED: SYN50 PO (17:33)
[2016-08-31] MEDS ORDERED: OXYC-57 PO (17:33)
[2016-08-31] MEDS ORDERED: LPT20 PO (17:33)
[2016-08-31] MEDS ORDERED: ASPEC81 PO (17:33)
--- NOTE | 2016-08-31 17:43 | Discharge Instructions ---
Discharge Instructions Date of Service August 31, 2016. Admission Reason for Admission: Cellulitis Discharge Discharge Diagnosis / Problem: Right knee cellulitis, Hypothyroidism, Dyslipidemia Discharge Goals Goal(s): Decrease discomfort, Improve function, Increase independence, Improve disease control Activity Recommendations Activity Limitations: resume your previous activity . Instructions / Follow-Up Instructions / Follow-Up Follow up with your Primary care provider Dr. Sierra on 09/02 @ 2 Pm Continue IV doxycycline BID for 7 days (dealership manager arranged for the antibiotic IV infusion) Follow up with ortho as needed You need to take your thyroid medication. your TSH was very high Check TSH in a few weeks (Your physician will order it) Restart your cholesterol medication ( Monitor liver enzymes) Current Hospital Diet Patient's current hospital diet: Regular Diet Discharge Diet Recommended Diet: AHA Diet (Heart Healthy) Pending Studies Studies pending at discharge: yes List of pending studies: Final blood cx Medical Emergencies . Who to Call and When: Medical Emergencies: If at any time you feel your situation is an emergency, please call 911 immediately. . Non-Emergent Contact Non-Emergency issues call your: Primary Care Provider Call Non-Emergent contact if: you have a fever, your pain is not controlled, your pain is worsening, you have any medication questions . . "Provider Documentation" section prepared by Lynne Prado. . VTE Core Measure Inpt VTE Proph given/why not?: Enoxaparin (Lovenox) [place] Drug Monitoring Program Search Results: patient reviewed within database
[2016-08-31 18:10] VITALS: BP 119/73; PULSE 68; TEMP 36.8; O2SAT 97
[2016-08-31] MEDS ORDERED: DOXY100C IV (18:24)
--- NOTE | 2016-09-07 00:26 | Discharge Summary ---
Discharge Summary Date of Service September 07, 2016. Discharge Summary Admission Date: August 30, 2016 at 00:32 Discharge Date: August 31, 2016 Discharge Disposition: Home with services Principal Diagnosis: Right knee cellulitis Secondary Diagnoses/Problems: Hypothyroidism Dyslipidemia Procedures: RIGHT LOWER EXTREMITY VENOUS DOPPLER CLINICAL HISTORY: Right lower extremity swelling. COMPARISON STUDY: No previous studies for comparison. TECHNIQUE: Sonography of the deep venous system of the right lower extremity was performed. Compression and augmentation were evaluated. FINDINGS: The common femoral, superficial femoral and popliteal veins were compressible. Augmentation was normal. Flow was shown within the deep calf vessels. IMPRESSION: No evidence of deep venous thrombus within the right lower extremity. Electronically signed by: Sameer Addison M.D. 08/30/2016 7:21 AM Dictated Date/Time: 08/30/2016 7:20 AM Consultations: Ortho Medication Reconciliation New Medications: Aspirin (Aspirin EC Low Dose) 81 Mg Ectab 81 MG PO QAM for 30 Days Atorvastatin (Atorvastatin Calcium) 20 Mg Tab 20 MG PO QAM for 30 Days, #30 TAB Levothyroxine Sodium (Synthroid) 50 Mcg Tab 50 MCG PO DAILYBB for 30 Days, TAB Changed Medications: Oxycodone/Acetaminophen 5MG/325MG (Percocet 5MG/325MG) Tab 1-2 TABS PO Q8H PRN for Pain for 4 Days, #12 TAB (Changed from: Q6H; 24; Removed Instructions) Discontinued Medications: Cephalexin Monohydrate (Keflex) 500 Mg Cap 500 MG PO QID for 10 Days, #40 CAP Sulfa/Trimethoprim (Bactrim Ds 800MG/160MG) Tab 1 TAB PO BID for 10 Days, #20 TAB Admission Information HPI (per Admitting provider): CHIEF COMPLAINT: Right knee pain and swelling. HISTORY OF PRESENT ILLNESS: History obtained from patient and records. Medical history significant for TIA, hypothyroidism. Recent confinement October 2013 for possible TIA. PX dcd on ASA and Lipitor. Few days ago, patient noted right knee swelling with achy pain, redness. Seen at the Emergency Room. X-ray showed soft tissue edema. Impression was right knee cellulitis. Patient discharged on Keflex, Bactrim, compliant with meds. Worsening swelling, worse with moving around, low grade fever at home. Physical Exam (per Admitting): VITAL SIGNS: Blood pressure was noted to be 132/80, pulse rate 106, RR 18, T 37, O2 sats 97 on room air. GENERAL: Noted to be slightly uncomfortable, no respiratory distress, looks older for stated age. SKIN: Normal color. HEENT: Alopecia. [place] palpebral conjunctivae. Dry mucosa. NECK: No JVD. supple CHEST: Clear to auscultation. HEART: Regular rate and rhythm. ABDOMEN: Soft. EXTREMITIES: Tender swelling on the anterior aspect of the knee with some extension to the sides. Some limitation with stretch, warm to touch. NEUROLOGIC: No gross focality. Hospital Course Right knee pain and swelling Possible due to prepatellar bursitis with possible secondary cellulitis Lactic acid elevated on admission Afebrile and no leukocytosis Elevated ESR blood cx pending Received IV Zosyn and daptomycin in the ER He had Incision and Drainage done on 08/28: blood and clear fluid was drained but no purulent material Starting on Doxycycline Continue pain control prn venous doppler of LE negative for DVT Ortho consulting- Pending 08/31 Swelling and redness improved significantly afebrile Ortho on board recommended current management Continue IV doxycycline will continue IV doxycycline for 7 to 10 days Picc line placed for outpatient infusion lining caser will arranged for the home abx infusion continue pain control prn Blood cx no growth so far clinically improved follow up with ortho prn if not improved or condition worsening Hypothyroidism. TSH 19 Non compliant ( has not been taking levothyroxine) starting on levothyroxine 50mg check TSH in 6 to 8 weeks with PCP Hx TIA continue asa, non compliance with statin continue statin stable DVT px on lovenox subq CODE STATUS FULL CODE Total time spent on discharge = 35 MINUTES This includes examination of the patient, discharge planning, medication reconciliation, and communication with other providers. Discharge Instructions Discharge Instructions Date of Service August 31, 2016. Admission Reason for Admission: Cellulitis Discharge Discharge Diagnosis / Problem: Right knee cellulitis, Hypothyroidism, Dyslipidemia Discharge Goals Goal(s): Decrease discomfort, Improve function, Increase independence, Improve disease control Activity Recommendations Activity Limitations: resume your previous activity . Instructions / Follow-Up Instructions / Follow-Up Follow up with your Primary care provider Dr. Sierra on 09/02 @ 2 Pm Continue IV doxycycline BID for 7 days (imaging center manager arranged for the antibiotic IV infusion) Follow up with ortho as needed You need to take your thyroid medication. your TSH was very high Check TSH in a few weeks (Your physician will order it) Restart your cholesterol medication ( Monitor liver enzymes) Current Hospital Diet Patient's current hospital diet: Regular Diet Discharge Diet Recommended Diet: AHA Diet (Heart Healthy) Pending Studies Studies pending at discharge: yes List of pending studies: Final blood cx Medical Emergencies . Who to Call and When: Medical Emergencies: If at any time you feel your situation is an emergency, please call 911 immediately. . Non-Emergent Contact Non-Emergency issues call your: Primary Care Provider Call Non-Emergent contact if: you have a fever, your pain is not controlled, your pain is worsening, you have any medication questions . . "Provider Documentation" section prepared by Lynne Prado. . VTE Core Measure Inpt VTE Proph given/why not?: Enoxaparin (Lovenox)[facility] Drug Monitoring Program Search Results: patient reviewed within database Additional Copies To Harlan Sierra M.D.
[2016-10-29] MEDS ORDERED: ASPI81TA28 PO (15:11)
[2016-10-29] MEDS ORDERED: ATOR-22 PO (15:11)
[2016-10-29] MEDS ORDERED: LEVO50TA6 PO (15:11)
[2016-10-29] MEDS ORDERED: NAPR1TAB9 PO (15:11)
[2016-10-29] MEDS ORDERED: TRAM-10 PO (16:03)
[2016-11-25] MEDS ORDERED: CYCL10TA6 PO (06:27)
[2016-11-25] MEDS ORDERED: CEPH500C2 PO (08:35)
[2016-11-25] MEDS ORDERED: OXYC-57 PO (08:35)
[2016-11-25] MEDS ORDERED: ASPI325T45 PO (08:35)
== END 2016-08-31 19:20 | disposition home health service (06) | DRG 558 ==
LOC: ENRESERVDT → ENRESERVTM → C.EDB 22:16 → C.MS2W 08-30 00:32
PROVIDERS: ADMIT Internal Medicine; ATTEND Internal Medicine
DX: M70.41 Prepatellar bursitis, right knee (principal); L03.115 Cellulitis of right lower limb; E03.9 Hypothyroidism, unspecified; E78.5 Hyperlipidemia, unspecified; R74.0 Nonspecific elevation of levels of transaminase and lactic acid dehydrogenase [LDH]; R70.0 Elevated erythrocyte sedimentation rate; Z86.73 Personal history of transient ischemic attack (TIA), and cerebral infarction without residual deficits; Z91.14 Patient's other noncompliance with medication regimen; Z87.891 Personal history of nicotine dependence; Z98.1 Arthrodesis status; Z79.891 Long term (current) use of opiate analgesic; Z79.899 Other long term (current) drug therapy; Z79.82 Long term (current) use of aspirin

== ENCOUNTER 2016-09-05 10:40 | Emergency (ER) | payer BC ==
[~2016-09-05] VITALS: Ht 172.7 cm; Wt 84.1 kg
[~2016-09-05 10:40] MED LIST changes: +ASPEC81 PO; -CEPH500C2 PO; +DOXY100C IV; +LPT20 PO; -SULF800T23 PO; +SYN50 PO
[2016-09-05 10:42] VITALS: BP 150/95; PULSE 90; TEMP 36.7; O2SAT 99; Ht 172.7 cm; Wt 84.1 kg
--- NOTE | 2016-09-05 10:56 | EMERGENCY ROOM VISIT NOTE ---
History Report prepared by Yahir: Minor Lobato Under the Supervision of: Dr. Krish De Leon M.D. First contact with patient: 10:45 Chief Complaint: PICC LINE CLOTTED Stated Complaint: MED LINE PROBLEMS History of Present Illness The patient is a 45 year old male who presents to the Emergency Room with constant PICC line malfunction that started earlier today. The patient noticed oozing from around the PICC line when he tried to run saline through it. He receives IV Doxycycline through the PICC line for a right knee infection. The PICC line was placed through his right bicep one week ago. The patient also had a PICC line complication two days ago for which he was seen in [place]. They only changed the dressing around the PICC line and did not perform an X-ray. He notes shoulder pain when he is receiving medication through the line. The patient follows up with Dr. Francisco, Orthopedic Surgeon. Source of History: patient Onset: today Position: arm (left) Quality: other (PICC line malfuncton) Timing: constant Modifying Factors (Worsening): other (flushing with saline) Review of Systems See HPI for pertinent positives & negatives. A total of 6 systems reviewed and were otherwise negative. Past Medical & Surgical Medical Problems: (1) Bursitis, knee (2) Cellulitis (3) Hypothyroid (4) Sepsis Surgical Problems: (1) S/P lumbar spinal fusion Family History TIAs FATHER Social History Smoking Status: Never Smoker Alcohol Use: occasionally Marital Status: Housing Status: lives with family Occupation Status: employed Current/Historical Medications Scheduled Aspirin (Aspirin EC Low Dose), 81 MG PO QAM Atorvastatin (Atorvastatin Calcium), 20 MG PO QAM Doxycycline Hyclate (Vibramycin), 100 MG PO BID Levothyroxine Sodium (Synthroid), 50 MCG PO DAILYBB Scheduled PRN Oxycodone/Acetaminophen 5MG/325MG (Percocet 5MG/325MG), 1-2 TABS PO Q8H PRN for Pain Allergies Coded Allergies: Adhesives (Verified Allergy, Intermediate, KEITH SKIN, 08/29/16) Physical Exam Vital Signs Date Time Temp Pulse Resp B/P Pulse Ox O2 Delivery O2 Flow Rate FiO2 09/05/16 10:42 36.7 90 20 150/95 99 Room Air Physical Exam GENERAL: Patient is well appearing and in no acute distress. HEENT: No acute trauma, normocephalic atraumatic, mucous membranes moist, no nasal congestion, no scleral icterus. NECK: No stridor, no adenopathy, no meningismus, trachea is midline. EXTREMITIES: Normal motion all extremities, no cyanosis, no edema. PICC line with some oozing of dressing left upper arm. NEUROLOGIC: Alert and oriented, no acute motor or sensory deficits, no focal weakness, cranial nerves grossly intact. SKIN: No rash, no jaundice, no diaphoresis. Medical Decision & Procedures Medications Administered Medications (Trade) Dose Ordered Sig/Tsering Route Start Time Stop Time Status Last Admin Dose Admin Doxycycline Hyclate (Vibramycin Cap) 100 mg ONE ONCE PO 09/05/16 11:30 09/05/16 11:31 DC 09/05/16 11:37 100 MG ED Course 1048: The patient was evaluated in room A3. A complete history and physical exam was performed. 1055: Discussed the pros and cons removing the patient's line. He would like it removed. 1125: Reassessed the patient. His PICC line was removed. He feels fine and would like to go home. He will receive a dose of oral Doxycycline. 1130: Vibramycin 100 mg PO. Medical Decision Medication Reconciliation: I attest that I have personally reviewed the patient 's current medication list. 45 yr old male arrives with left upper picc line issue. Notes it is not working. No evidence DVT by examination. He has been on IV doxy as outpatient for last 5 days with plan for total 7 days. This was for right knee cellulitis. Notes cellulitis resolved and no further symptoms. Doxy has identical oral bioavailability to IV and with failure of PICC I do not feel it is reasonable to replace a new one for just a few more days of identical medication. Will add on just a few days of doxy just given issues with PICC not working and question whether it was fully given on previous injections last few days. We reviewed risks of worsening knee infection. Reviewed monitoring arm for any evidence infection or DVT. Impression Primary Impression: Occluded PICC line Scribe Attestation The scribe's documentation has been prepared under my direction and personally reviewed by me in its entirety. I confirm that the note above accurately reflects all work, treatment, procedures, and medical decision making performed by me. Departure Information Dispostion Home / Self-Care Prescriptions Doxycycline Hyclate (VIBRAMYCIN) 100 Mg Cap 100 MG PO BID for 5 Days, #10 CAP Prov: Krish De Leon M.D. 09/05/16 Referrals Mitra Valles D.O. (PCP) Forms HOME CARE DOCUMENTATION FORM, IMPORTANT VISIT INFORMATION Patient Instructions My [facility] Spotsetter Additional Instructions Return if worsening infection, fevers, swelling, pain, bleeding or other concerns. Avoid sun while on doxycycline as it can cause sun keith. Problem Qualifiers Primary Impression: Occluded PICC line Encounter type: initial encounter Qualified Codes: T82.898A - Other specified complication of vascular prosthetic devices, implants and grafts, initial encounter
[2016-09-05] MEDS ORDERED: DOXYCYCLINE HYCLATE 100 MG CAP PO ONE (11:30)
[2016-09-05] MEDS ORDERED: DOXY100C PO (11:30)
[2016-10-29] MEDS ORDERED: NAPR1TAB9 PO (15:11)
[2016-10-29] MEDS ORDERED: ASPI81TA28 PO (15:11)
[2016-10-29] MEDS ORDERED: LEVO50TA6 PO (15:11)
[2016-10-29] MEDS ORDERED: ATOR-22 PO (15:11)
[2016-10-29] MEDS ORDERED: TRAM-10 PO (16:03)
[2016-11-25] MEDS ORDERED: CYCL10TA6 PO (06:27)
[2016-11-25] MEDS ORDERED: ASPI325T45 PO (08:35)
[2016-11-25] MEDS ORDERED: OXYC-57 PO (08:35)
[2016-11-25] MEDS ORDERED: CEPH500C2 PO (08:35)
== END 2016-09-05 11:38 | disposition home or self-care (01) ==
LOC: C.EDB 10:41 → C.EDA 11:38
DX: T82.898A Other specified complication of vascular prosthetic devices, implants and grafts, initial encounter (principal); X58.XXXA Exposure to other specified factors, initial encounter; M70.51 Other bursitis of knee, right knee; E03.9 Hypothyroidism, unspecified; Z82.49 Family history of ischemic heart disease and other diseases of the circulatory system; Z79.82 Long term (current) use of aspirin; Z79.899 Other long term (current) drug therapy; Z79.2 Long term (current) use of antibiotics

== ENCOUNTER → 2016-09-08 | Outpatient (CLI) | payer BC ==
[~2016-09-08] MED LIST changes: +ASPI325T45 PO; +ASPI81TA28 PO; +ATOR-22 PO; +CEPH500C2 PO; +CYCL10TA6 PO; -DOXY100C IV; +DOXY100C PO; +HYDR-5688 PO; +LEVO50TA6 PO; +NAPR1TAB9 PO; +PRED20TA PO; +TRAM-10 PO
--- NOTE | 2016-09-08 12:40 | DIAGNOSTIC IMAGING REPORT ---
ULTRASOUND LEFT UPPER EXTREMITY VENOUS CLINICAL HISTORY: Left arm pain. COMPARISON STUDY: No priors. TECHNIQUE: Real-time, grayscale, and color Doppler sonography of the deep veins of the left upper extremity is performed. Compression and augmentation were utilized. FINDINGS: There is no sonographic evidence of deep venous thrombosis identified in the left upper extremity. The left internal jugular, axillary, and brachial veins are patent and normally compressible. Normal venous waveforms and augmentation are seen within the left subclavian vein. The basilic vein is clear. There is superficial venous thrombus seen in the left cephalic vein extending from the elbow to the shoulder. The visualized radial and ulnar veins are patent. IMPRESSION: 1. There is no sonographic evidence of deep venous thrombosis identified in the left upper extremity. 2. Superficial venous thrombus is seen within the left cephalic vein extending from the elbow to the shoulder. Electronically signed by: Tony Carlton M.D. 09/08/2016 12:39 PM Dictated Date/Time: 09/08/2016 12:38 PM
== END | disposition home or self-care (01) ==
LOC: C.ULTR 12:09
PROVIDERS: ATTEND Internal Medicine
DX: Z95.828 Presence of other vascular implants and grafts (principal); M79.622 Pain in left upper arm

== ENCOUNTER 2016-11-08 20:13 | Emergency (ER) | payer BC ==
[~2016-11-08] VITALS: Ht 167.6 cm; Wt 81.9 kg
[~2016-11-08 20:13] MED LIST changes: -ASPEC81 PO; -ASPI325T45 PO; -CEPH500C2 PO; -CYCL10TA6 PO; -DOXY100C PO; -HYDR-5688 PO; -LPT20 PO; -OXYC-57 PO; -PRED20TA PO; -SYN50 PO
[2016-11-08 20:16] VITALS: TEMP 36.7; Ht 167.6 cm; Wt 81.9 kg
[2016-11-08] MEDS ORDERED: DIAZEPAM 5MG TAB PO STA (21:07)
[2016-11-08] MEDS ORDERED: METHYLPREDNISOLONE 125 MG VIAL IV STA (21:07)
[2016-11-08] MEDS ORDERED: ONDANSETRON INJ 2 MG/ML 2 ML VIAL IV STA (21:07)
[2016-11-08] MEDS ORDERED: MoRPHine SULFATE 4 MG/ML 1 ML CARP\\VIAL IV STA (21:07)
--- NOTE | 2016-11-08 21:11 | EMERGENCY ROOM VISIT NOTE ---
History Report prepared by Yahir: Sally Littlejohn Under the Supervision of: Dr. Lety Rock M.D. First contact with patient: 20:39 Chief Complaint: BACK PAIN Stated Complaint: LOWER BACK PAIN History of Present Illness The patient is a 45 year old male who presents to the Emergency Room with complaints of shooting sharp lower back pain beginning this morning. The patient states that he was at work this morning and was bending over when he suddenly felt a sharp and shooting pain in his lower back. He reports that he had a disc infusion surgery on the same location 10 years ago. He notes that he is having pain in his right leg but states that he is scheduled to have surgery in that knee in two weeks and is not sure if that is the cause of his pain. The patient states that he has not had issues with his back since the surgery and this is his first major issue since the surgery. He complains of right leg weakness. He denies any pain in the butt cheek, hematuria, and incontinence. He notes that his pain is worsened with movement and his back has spasm with movement. Source of History: patient Onset: this morning Position: back (lower) Quality: sharp, other (shooting) Timing: constant Associated Symptoms: + weakness Note: He denies any pain in the butt cheek, hematuria, and incontinence. Review of Systems See HPI for pertinent positives & negatives. A total of 10 systems reviewed and were otherwise negative. Past Medical & Surgical Medical Problems: (1) Bursitis, knee (2) Cellulitis (3) Hypothyroid (4) Sepsis Surgical Problems: (1) S/P lumbar spinal fusion Family History TIAs FATHER Social History Smoking Status: Never Smoker Alcohol Use: occasionally Marital Status: Housing Status: lives with family Occupation Status: employed Current/Historical Medications Scheduled Aspirin (Aspirin Ec), 81 MG PO QAM Atorvastatin (Lipitor), 20 MG PO QAM Levothyroxine Sodium (Levothyroxine Sodium), 1 TAB PO QAM Naproxen (Aleve), 440 MG PO PRN Prednisone (Prednisone), 40 MG PO DAILY Scheduled PRN Cyclobenzaprine Hcl (Flexeril), 10 MG PO TID PRN for Muscle Spasms Hydrocodone/Acetaminophen 5MG/325MG (Percival 5MG/325MG), 1 TABLET PO Q6 PRN for Pain Tramadol (Ultram), 50 MG PO Q4 PRN for Pain Allergies Coded Allergies: Adhesives (Verified Allergy, Intermediate, OLD CHEWY TAPE-KEITH SKIN, 10/29) NO KNOWN DRUG ALLERGIES (Verified Allergy, Unknown, NONE, 10/29/16) Physical Exam Vital Signs Date Time Temp Pulse Resp B/P (MAP) Pulse Ox O2 Delivery O2 Flow Rate FiO2 11/09/16 00:08 83 96 11/09/16 00:01 127/79 11/08/16 23:53 83 96 11/08/16 23:38 83 96 11/08/16 23:33 80 94 11/08/16 23:31 133/77 11/08/16 23:13 87 131/77 96 11/08/16 22:25 98 16 138/91 97 Room Air 11/08/16 22:25 138/91 11/08/16 20:16 36.7 117 18 146/95 98 Room Air Physical Exam Vital signs reviewed. General: Well-appearing male, in no significant distress, mildly diaphoretic. HEENT: No scleral icterus, PERRLA, neck supple. Atraumatic. Cardiovascular: Regular rate and rhythm, no extra sounds. Pulmonary: Clear to auscultation bilaterally, normal work of breathing. Abdomen: Soft, nontender, nondistended, positive bowel sounds. Musculoskeletal: Lumbar paraspinous muscle tenderness. Neurologic: Patient awake alert and oriented x 3, full strength in all 4 extremities. Cranial nerves 2 through 12 grossly intact. Positive straight leg raise right greater than left. Skin: Warm, dry, no rash Medical Decision & Procedures ER Provider Diagnostic Interpretation: Radiology results as stated below per my review and radiologist interpretation: CT ABDOMEN & PELVIS: The liver, gallbladder, spleen, pancreas, and adrenal glands are unremarkable. The kidneys, ureters and urinary bladder are unremarkable. The stomach, small bowl, and colon are unremarkable. The appendix is not visualized. No free fluid. No free air. Postsurgical changes are noted within the spine. LUMBAR SPINE 5 VIEWS FINDINGS: 5 views of the lumbar spine are correlated with MRI of lumbar spine dated 03/22/2007. The skeletal structures are well mineralized. There is no radiographic evidence of fracture or malalignment. Vertebral body height and alignment are maintained. The transverse and spinous processes are intact. There is no evidence of spondylolysis. There are postoperative changes from L5 -S1 spinal fusion. There has been discectomy at L5-S1. The remaining disc spaces are maintained. Small anterior osteophytes are seen throughout. The visualized bony pelvis appears intact. There is a nonobstructed abdominal bowel gas pattern. IMPRESSION: No acute bony abnormality is seen involving the lumbosacral spine. Electronically signed by: Tony Carlton M.D. 11/08/2016 10:20 PM Dictated Date/Time: 11/08/2016 10:18 PM Laboratory Results 11/08/16 21:20 Red Blood Count 4.93, Mean Corpuscular Volume 83.2, Mean Corpuscular Hemoglobin 28.6, Mean Corpuscular Hemoglobin Concent 34.4, Mean Platelet Volume 9.8, Neutrophils (%) (Auto) 58.7, Lymphocytes (%) (Auto) 30.7, Monocytes (%) (Auto) 8.1, Eosinophils (%) (Auto) 2.1, Basophils (%) (Auto) 0.3, Neutrophils # (Auto) 5.93, Lymphocytes # (Auto) 3.10, Monocytes # (Auto) 0.82, Eosinophils # (Auto) 0.21, Basophils # (Auto) 0.03 11/08/16 21:20 Test 11/08/16 21:20 11/08/16 22:25 White Blood Count 10.10 K/uL (4.8-10.8) Red Blood Count 4.93 M/uL (4.7-6.1) Hemoglobin 14.1 g/dL (14.0-18.0) Hematocrit 41.0 % (42-52) Mean Corpuscular Volume 83.2 fL (80-100) Mean Corpuscular Hemoglobin 28.6 pg (25-34) Mean Corpuscular Hemoglobin Concent 34.4 g/dl (32-36) Platelet Count 231 K/uL (130-400) Mean Platelet Volume 9.8 fL (7.4-10.4) Neutrophils (%) (Auto) 58.7 % Lymphocytes (%) (Auto) 30.7 % Monocytes (%) (Auto) 8.1 % Eosinophils (%) (Auto) 2.1 % Basophils (%) (Auto) 0.3 % Neutrophils # (Auto) 5.93 K/uL (1.4-6.5) Lymphocytes # (Auto) 3.10 K/uL (1.2-3.4) Monocytes # (Auto) 0.82 K/uL (0.11-0.59) Eosinophils # (Auto) 0.21 K/uL (0-0.5) Basophils # (Auto) 0.03 K/uL (0-0.2) RDW Standard Deviation 37.0 fL (36.4-46.3) RDW Coefficient of Variation 12.3 % (11.5-14.5) Immature Granulocyte % (Auto) 0.1 % Immature Granulocyte # (Auto) 0.01 K/uL (0.00-0.02) Anion Gap 7.0 mmol/L (3-11) Est Creatinine Clear Calc Drug Dose 72.8 ml/min Estimated GFR () 76.9 Estimated GFR (Non- 66.4 BUN/Creatinine Ratio 16.2 (10-20) Calcium Level 9.3 mg/dl (8.5-10.1) Total Bilirubin 0.3 mg/dl (0.2-1) Direct Bilirubin < 0.1 mg/dl (0-0.2) Aspartate Amino Transf (AST/SGOT) 19 U/L (15-37) Alanine Aminotransferase (ALT/SGPT) 33 U/L (12-78) Alkaline Phosphatase 101 U/L (45-117) Total Protein 7.4 gm/dl (6.4-8.2) Albumin 3.7 gm/dl (3.4-5.0) Urine Color YELLOW Urine Appearance CLEAR (CLEAR) Urine pH 6.5 (4.5-7.5) Urine Specific [place] 1.021 (1.000-1.030) Urine Protein NEG (NEG) Urine Glucose (UA) NEG (NEG) Urine Ketones NEG (NEG) Urine Occult Blood 2+ (NEG) Urine Nitrite NEG (NEG) Urine Bilirubin NEG (NEG) Urine Urobilinogen NEG (NEG) Urine Leukocyte Esterase NEG (NEG) Urine WBC (Auto) 1-5 /hpf (0-5) Urine RBC (Auto) 10-30 /hpf (0-4) Urine Hyaline Casts (Auto) 0 /lpf (0-5) Urine Epithelial Cells (Auto) 5-10 /lpf (0-5) Urine Bacteria (Auto) NEG (NEG) Laboratory results per my review. Medications Administered Medications (Trade) Dose Ordered Sig/Tsering Route Start Time Stop Time Status Last Admin Dose Admin Diazepam (Valium Tab) 5 mg NOW STAT PO 11/08/16 21:07 11/08/16 21:12 DC 11/08/16 21:35 5 MG Methylprednisolone Sodium Succinate (Solu-Medrol IV) 125 mg NOW STAT IV 11/08/16 21:07 11/08/16 21:12 DC 11/08/16 21:35 125 MG Morphine Sulfate (MoRPHine SULFATE INJ) 4 mg NOW STAT IV 11/08/16 21:07 11/08/16 21:12 DC 11/08/16 21:36 4 MG Ondansetron HCl (Zofran Inj) 4 mg NOW STAT IV 11/08/16 21:07 11/08/16 21:13 DC 11/08/16 21:35 4 MG Cyclobenzaprine HCl (Flexeril Tab) 10 mg NOW STAT PO 11/08/16 22:29 11/08/16 22:31 DC 11/08/16 22:37 10 MG Acetaminophen/ Hydrocodone Bitart (Percival 7.5/325 Tab) 1 tab NOW STAT PO 11/08/16 22:29 11/08/16 22:31 DC 11/08/16 22:37 1 TAB ECG Indication: back/shoulder pain Rate (beats per minute): 83 Rhythm: other (sinus arrythmia) Findings: no acute ischemic change, no ectopy ED Course 2038: Past medical records reviewed. The patient was evaluated in room B4. A complete history and physical examination was performed. 2106: Zofran Inj 4mg IV, Morphine Sulfate 4mg IV, Solu-Medrol IV 125mg IV, Valium Tab 5mg PO. 2026: I reevaluated the patient and is pain is not any better. 2228: Hydrocodone Bitart/Acetaminophen 1 tab PO, Flexeril Tab 10mg PO. 7: I reevaluated and updated the patient. 0006: Upon reevaluation, the patient appeared to have improvement of his symptoms. I discussed findings with the patient. He verbalized agreement of the treatment plan. The patient was discharged home. Medical Decision Differential diagnosis: Etiologies such as musculoskeletal, disc herniation, fracture, aortic disease, metastatic disease, cord compression, discitis, infection, renal colic, gastrointestinal, acute exacerbation of chronic back pain, sciatica, cauda equina, as well as others were entertained. This patient was evaluated and appeared to be in some discomfort. IV access was obtained and laboratory work was drawn. The patient was given 5 mg of oral Valium, 125 mg of Solu-Medrol, 4 mg of morphine and 4 mg of Zofran. Lumbar spine films were performed and are read as above. There is no significant fracture or malalignment. Patient's urinalysis reveals microscopic blood. He continued to complain of significant pain. Patient was given 10 mg of oral Flexeril. A CT scan abdomen and pelvis was performed to rule out kidney stone, this study is negative. Patient was reevaluated and had some improvement. He will be discharged with a prescription for prednisone 4 days, Flexeril 3 times a day as needed and Percival one tablet every 6 hours. Patient will follow-up with his physician for reevaluation and Dr. Bolanos regarding his back pain. He will return to the ER for worsening of symptoms or any medical concerns. [place] Drug Monitoring Program Search Results: patient reviewed within database, no issues identified Medication Reconcilliation Current Medication List: was personally reviewed by me Blood Pressure Screening Patient's blood pressure: Elevated blood pressure Blood pressure disposition: Elevated BP felt to be situational Impression Primary Impression: Strain of lumbar region Scribe Attestation The scribe's documentation has been prepared under my direction and personally reviewed by me in its entirety. I confirm that the note above accurately reflects all work, treatment, procedures, and medical decision making performed by me. Departure Information Dispostion Home / Self-Care Prescriptions Hydrocodone/Acetaminophen 5MG/325MG (Percival 5MG/325MG) Tab 1 TABLET PO Q6 Y for Pain, #20 TAB Prov: Lety Rock M.D. 11/09/16 Cyclobenzaprine Hcl (FLEXERIL) 10 Mg Tab 10 MG PO TID Y for Muscle Spasms, #21 TAB Prov: Lety Rock M.D. 11/09/16 Prednisone (Prednisone) 20 Mg Tab 40 MG PO DAILY, #8 TAB Prov: Lety Rock M.D. 11/09/16 Referrals Mitra Valles D.O. (PCP) Forms HOME CARE DOCUMENTATION FORM, IMPORTANT VISIT INFORMATION Patient Instructions My [facility] Additional Instructions Diagnosis: Lumbar back strain, hematuria Prednisone 40 mg for 4 days, start tomorrow. Flexeril 10 mg 3 times a day as needed for muscular spasm. Percival one tab every 4-6 hours as needed for more severe pain. Do not drive or take Tylenol with this medication. Follow-up with your primary care physician regarding the blood in the urine. Contact Dr. Bolanos's office for reevaluation of your back pain. Return to the ER for worsening of symptoms or any medical concerns.
[2016-11-08 21:34] LABS: BASO % 0.3 %; BASO ABS # 0.03 K/uL (0-0.2); COMPLETE YES; EOS % 2.1 %; IG% 0.1 %; LYMPH % 30.7 %; MEAN CELL VOLUME 83.2 fL (80-100); MEAN CORPUSCULAR HEMOGLOBIN 28.6 pg (25-34); MEAN CORPUSCULAR HGB CONC 34.4 g/dl (32-36); MEAN PLATELET VOLUME 9.8 fL (7.4-10.4); MONO % 8.1 %; NEUT % 58.7 %; PLATELET COUNT 231 K/uL (130-400); RED BLOOD COUNT 4.93 M/uL (4.7-6.1)
[2016-11-08 21:51] LABS: ALT/SGPT 33 U/L (12-78); BLOOD UREA NITROGEN 21 mg/dl (7-18); BUN/CREATININE RATIO 16.2 (10-20); CALCIUM 9.3 mg/dl (8.5-10.1); CARBON DIOXIDE 27 mmol/L (21-32); CHLORIDE 109 mmol/L (98-107); GLUCOSE 113 mg/dl (70-99); POTASSIUM 3.8 mmol/L (3.5-5.1); SODIUM 143 mmol/L (136-145)
[2016-11-08 21:54] LABS: ALKALINE PHOSPHATASE 101 U/L (45-117); AST/SGOT 19 U/L (15-37)
--- NOTE | 2016-11-08 22:21 | DIAGNOSTIC IMAGING REPORT ---
LUMBAR SPINE 5 VIEWS CLINICAL HISTORY: Lower back pain. FINDINGS: 5 views of the lumbar spine are correlated with MRI of lumbar spine dated 03/22/2007. The skeletal structures are well mineralized. There is no radiographic evidence of fracture or malalignment. Vertebral body height and alignment are maintained. The transverse and spinous processes are intact. There is no evidence of spondylolysis. There are postoperative changes from L5 -S1 spinal fusion. There has been discectomy at L5-S1. The remaining disc spaces are maintained. Small anterior osteophytes are seen throughout. The visualized bony pelvis appears intact. There is a nonobstructed abdominal bowel gas pattern. IMPRESSION: No acute bony abnormality is seen involving the lumbosacral spine. Electronically signed by: Tony Carlton M.D. 11/08/2016 10:20 PM Dictated Date/Time: 11/08/2016 10:18 PM
[2016-11-08] MEDS ORDERED: HYDROCODONE/ACETAMINOPHEN 7.5/325MG TAB PO STA (22:29)
[2016-11-08] MEDS ORDERED: CYCLOBENZAPRINE HCL 10 MG TAB PO STA (22:29)
[2016-11-08 22:46] LABS: URINE APPEARANCE CLEAR (CLEAR); URINE BILIRUBIN NEG (NEG); URINE COLOR YELLOW; URINE NITRITE NEG (NEG); URINE PH 6.5 (4.5-7.5); URINE SPECIFIC GRAVITY 1.021 (1.000-1.030); UROBILINOGEN NEG (NEG); ZZUR CULT IF INDIC CLEAN CATCH NO
[2016-11-08 22:48] LABS: MANUAL MICROSCOPIC REQUIRED? NO; REVIEW REQ? NO
[2016-11-09 00:01] VITALS: BP 127/79
[2016-11-09] MEDS ORDERED: PRED20TA PO (00:03)
[2016-11-09] MEDS ORDERED: CYCL10TA6 PO (00:04)
[2016-11-09] MEDS ORDERED: HYDR-5688 PO (00:04)
[2016-11-09 00:08] VITALS: PULSE 83; O2SAT 96
--- NOTE | 2016-11-09 06:02 | DIAGNOSTIC IMAGING REPORT ---
ABD/PELVIS NO IV OR ORAL CONT CT DOSE: 396.47 mGy.cm HISTORY: Flank pain. Hematuria. flank pain, hematuria TECHNIQUE: Multiaxial CT images of the abdomen and pelvis were performed without contrast. A dose lowering technique was utilized adhering to the principles of ALARA. COMPARISON STUDY: None. FINDINGS: 3 mm nodule lower left lung transaxial image 6 lung bases otherwise are clear. Minimal dependent basilar atelectasis. Liver spleen and pancreas are unremarkable. Postoperative changes to low lumbar spine consistent with laminectomy and fusion. Nonobstructive bowel pattern. The appendix is not well seen although there is no pericecal or right lower quadrant inflammatory process. Kidneys negative for hydronephrosis. Moderate mesenteric adenopathy suggesting mesenteric adenitis. Urinary tracts are unremarkable. IMPRESSION: 1. Moderate mesenteric adenitis. 2. Otherwise negative study. 3. Nonobstructive bowel pattern. The above report was generated using voice recognition software. It may contain grammatical, syntax or spelling errors. Electronically signed by: Elliot Cool M.D. 11/09/2016 6:01 AM Dictated Date/Time: 11/09/2016 5:56 AM
[2016-11-25] MEDS ORDERED: CYCL10TA6 PO (06:27)
[2016-11-25] MEDS ORDERED: ASPI325T45 PO (08:35)
[2016-11-25] MEDS ORDERED: OXYC-57 PO (08:35)
[2016-11-25] MEDS ORDERED: CEPH500C2 PO (08:35)
== END 2016-11-09 00:16 | disposition home or self-care (01) ==
LOC: C.EDB 20:14
DX: S39.012A Strain of muscle, fascia and tendon of lower back, initial encounter (principal); X50.1XXA Overexertion from prolonged static or awkward postures, initial encounter; E03.9 Hypothyroidism, unspecified; Z82.49 Family history of ischemic heart disease and other diseases of the circulatory system; Z79.82 Long term (current) use of aspirin; Z79.899 Other long term (current) drug therapy

== ENCOUNTER → 2016-11-25 | Day surgery (SDC) | payer BC ==
[2016-10-29 15:11] VITALS: Ht 167.6 cm; Wt 87.9 kg
--- NOTE | 2016-10-29 15:34 | PAT Medication Instructions ---
Service Date Oct 29, 2016. Current Home Medication List Aspirin (Aspirin Ec), 81 MG PO QAM Atorvastatin (Lipitor), 20 MG PO QAM Levothyroxine Sodium (Levothyroxine Sodium), 1 TAB PO QAM Naproxen (Aleve), 440 MG PO PRN Medication Instructions For Your Scheduled Surgery - Check with surgeon for instructions: Aspirin (Aspirin Ec), 81 MG PO QAM Naproxen (Aleve), 440 MG PO PRN - Take the following medications the morning of surgery with a sip of water: Levothyroxine Sodium (Levothyroxine Sodium), 1 TAB PO QAM Atorvastatin (Lipitor), 20 MG PO QAM If you have any questions please call us at [phone] or [phone] or [phone]
[2016-10-29 15:55] LABS: HEMATOCRIT 42.3 % (42-52); MEAN CELL VOLUME 83.6 fL (80-100); MEAN CORPUSCULAR HEMOGLOBIN 28.9 pg (25-34); MEAN CORPUSCULAR HGB CONC 34.5 g/dl (32-36); MEAN PLATELET VOLUME 10.4 fL (7.4-10.4); PLATELET COUNT 175 K/uL (130-400); RED BLOOD COUNT 5.06 M/uL (4.7-6.1); WHITE BLOOD COUNT 7.33 K/uL (4.8-10.8)
[~2016-11-25] VITALS: Ht 167.6 cm; Wt 87.9 kg
[~2016-11-25] MED LIST changes: +ALBUTEROL HFA INHALER 8.5 GM INH ONE; +ASPI325T45 PO; +ATROPINE SULFATE 0.1 MG/ML 5ML SYR IV PRN; +BUPIVACAINE 0.5 % 5 MG/1 ML MPF 30ML VIAL ONE; +CEFAZOLIN 2000 MG/60 ML D5W IV SCH; +CEPH500C2 PO; +CYCL10TA6 PO; +DEXAMETHASONE SOD INJ 4 MG/ML VIAL ONE; +EpHEDrine SULFATE INJ 50 MG/ML AMP IV PRN; +FENTANYL CITRATE INJ 50 MCG/1 ML 2 ML VIAL ONE; +FLUMAZENIL 0.1 MG/1 ML 10 ML VIAL IV PRN; +HYDR-5688 PO; +HYDROmorphone INJ 1 MG/ML SYR IV PRN; +LABETALOL HCL IV 5 MG/ML 20ML IV PRN; +LACTATED RINGER'S 1000ML 1,000 ML IV SCH; +LIDOCAINE HCL 2% 2 ML VIAL (20MG/ML) ONE; +LIDOCAINE/EPINEPHRINE 1% INJ 50 ML VIAL ONE; +MIDAZOLAM HCL 1 MG/ML 2ML VIAL ONE; +MoRPHine SULFATE 2 MG/ML CARP IV PRN; +MoRPHine SULFATE 4 MG/ML 1 ML CARP\\VIAL IV PRN; +NALOXONE HCL 0.4 MG/1 ML VIAL/CARP IV PRN; +ONDANSETRON INJ 2 MG/ML 2 ML VIAL IV PRN; +ONDANSETRON INJ 2 MG/ML 2 ML VIAL ONE; +OXYC-57 PO; +OXYCODONE/ACETAMINOPHEN 5-325 TAB PO PRN; +PRED20TA PO; +PROMETHAZINE HCL INJ 12.5 MG in SODIUM CHLORIDE 0.9% 50ML 50 ML IV PRN; +PROPOFOL IV EMULSION 10 MG/ML 20 ML VIAL IV ONE; +SODIUM CHLORIDE 0.9% 1000ML 1,000 ML IV SCH
--- NOTE | 2016-11-25 07:03 | History & Physical Bridge Note ---
H&P Re-Evaluation Bridge Note: I have examined the patient, reviewed the History & Physical and in the interval since the performance of the History & Physical I have noted the following changes of clinical significance: No changes noted
--- NOTE | 2016-11-25 08:30 | [facility] Operative Report ---
Operative Report Operative Date Nov 25, 2016. Pre-Operative Diagnosis Right Knee Prepatellar Bursitis Post-Operative Diagnosis Same Procedure(s) Performed Right Knee prepatellar bursectomy Surgeon Dr. Gonzalez [employer] Operator Surgeon(s) Cecilia Groves PA-C Estimated Blood Loss 5ml Findings Significant peribursal scarring. 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 Recent episode of infection treated with antibiotics and cured. He wishes to have the large prepatellar bursa removed. Description of Procedure Informed consent was obtained. The patient identified as Patrick Bonilla. He identified the operative site as the right knee. I marked with my initials. Preoperative surgical timeout was performed. Examination under anesthesia revealed a 3-4 cm in diameter elevated of soft tissue mass just anterior to the tibial tubercle. Cruciate and collateral ligament laxity was normal. There is not a knee effusion and he had full range of motion. There is chronic thickening of the skin consistent with chronic kneeling. There is no evidence of infection. DVT prophylaxis intraoperatively is not necessary. Postoperatively aspirin. The right lower extremity was prepped and draped in usual sterile fashion a tourniquet was applied of the right thigh and a bump under the right hip. The limb was exsanguinated with the Esmarch and tourniquet inflated to 2 or 25 mmHg. A midline incision was made proximal 8 cm in length and extended as necessary. The skin and dermal layer was markedly thickened. The interval between the bursa and the skin was markedly scarred anterior and particularly laterally. I carefully used the scissors to dissect this interval. Care was taken to avoid damage to the skin. This large massive bursa was circumferentially dissected out. Sedation was extended proximally to remove thickened prepatellar bursa over the patella. The patellar tendon remained intact. The mass was adherent to the peritenon and a large amount of this was excised with the bursa. A thorough and complete bursectomy was performed extending up to the patella down to the tibial tubercle and over to the medial and lateral sides of the knee. The tourniquet was let down after 30 minutes of inflation. Sponges soaked with 1% lidocaine with epinephrine were tacked into the knee pressure was held. Hemostasis was performed with electrocautery there is no significant bleeding. A large Hemovac drain was inserted exiting out the superior aspect of the knee. Skin was then closed with 2-0 Vicryl and jeanine. Prior to that the incision was irrigated with sterile saline. The skin was then infiltrated with a 50-50 mixture of 0.5% Marcaine and 1% lidocaine with epinephrine. A soft sterile compressive dressing was applied along the full length Kaiser wrap and a knee immobilizer. Patient awakened from anesthesia without difficulty taken recovery room in stable condition. There were no call locations. The resected bursa was sent for specimen. Blood loss was minimal. Counts are correct in the case. At the conclusion operations both patient's informed her my findings. Detailed postoperative instructions were given. He'll be in tomorrow for evaluation and removal of drain. Aspirin 325 twice a day for DVT prophylaxis. He may need to have the knee bursa reaspirated if fluid re-accumulates. He'll continue with a knee immobilizer. He can weight-bear as tolerated. I attest to the content of the Intraoperative Record and any orders documented therein. Any exceptions are noted below.
--- NOTE | 2016-11-25 08:45 | Discharge Instructions-SurgCtr ---
Discharge Instructions Date of Service Nov 25, 2016. Visit Reason for Visit: Right Knee Prepatellar Bursitis Discharge Discharge Diagnosis / Problem: right knee prepatellar bursitis Discharge Goals Goal(s): Decrease discomfort, Improve function, Increase independence Medications Stopped Medications Name(s): ASA stopped 1 week ago. Restart Stopped Medication(s): Resume aspirin 325 mg twice daily 3 weeks to prevent blood clots. After that you may continue aspirin 81 mg daily Activity Recommendations Activity Limitations: per Instructions/Follow-up section Weightbearing Status: Right weightbearing (as tolerated with knee immobilizer on at all times) Anesthesia . Post Anesthesia Instructions: If you have had General Anesthesia or IV Sedation: * Do not drive today. * Resume driving when surgeon permits. * Do not make important decisions or sign legal documents today. * Call surgeon for: 1. Temperature elevations greater than 101 degrees F. 2. Uncontrollable pain. 3. Excessive bleeding. 4. Persistent nausea and vomiting. 5. Medication intolerance (nausea, vomiting or rash). * For nausea and vomiting use only clear liquids such as: tea, soda, bouillon until nausea subsides, then gradually increase diet as tolerated. * If you have any concerns or questions, call your surgeon's office. If physician is unavailable and it is an emergency, call 911 or go to the nearest emergency room. . Instructions / Follow-Up Instructions / Follow-Up DIET: * Resume previous diet. MEDICATIONS: * Please take your prescriptions as instructed at your pre-op appointment and/ or see medication discharge instructions listed above. * Percocet 5/325 mg 1-2 tabs every 4-6 hours as needed for pain * Aspirin 325 mg twice daily with food 3 weeks * Keflex 500 mg by mouth 4 times a day 5 days. Take until gone * If concerns develop, call your physician's office at . SPECIAL CARE INSTRUCTIONS: * Ice to right knee as needed for pain and swelling * Elevate right lower extremity above heart to relieve pain and swelling. * Keep dressing clean, dry, intact. Keep knee immobilizer on at all times. * Use crutches to assist with ambulation. You may weight-bear as tolerated right lower extremity with knee immobilizer on. * Entity and record Hemovac drainage amounts every 8 hours as instructed. Keep drain in. Bring drainage amount and with you to your appointment tomorrow * Your surgical extremity may be discolored due to prepping agents used on the skin. A bluish-green tint is a normal variant and should not cause alarm. Call your doctor at [phone] if: * Temperature above 101 degrees * Pain not relieved by pain medicine ordered * There is increased drainage or redness from any incision * You have any unanswered questions, problems or concerns. FOLLOW UP VISIT: * If not already scheduled, please call the office at to schedule a follow-up appointment. You have a follow-up appointment at [facility] orthopedics on 11/25/2016 at 9: 15 AM You have a follow-up appointment on November 30 at 12:[address] Gonzalez You have a follow-up appointment with Dr. Gonzalez on 12/10/2016 at 9:15 AM Diet Recommendations Home Diet: no limitations, resume previous diet Procedures Procedures Performed: Right Knee prepatellar bursectomy Pending Studies Studies pending at discharge: no Medical Emergencies . Who to Call and When: Medical Emergencies: If at any time you feel your situation is an emergency, please call 911 immediately. . Non-Emergent Contact Non-Emergency issues call your: Surgeon Call Non-Emergent contact if: temperature is above 101, your pain is not controlled, your pain is concerning you, wound has increased drainage, wound has increased redness, wound has increased pain, you have any medication questions . . "Provider Documentation" section prepared by Amelie Groves. . [place] Drug Monitoring [place] Search Results: patient reviewed within database, no issues identified
--- NOTE | 2016-11-25 08:48 | [facility] Operative Report ---
Operative Report Operative Date Nov 25, 2016. Pre-Operative Diagnosis Right Knee Prepatellar Bursitis Post-Operative Diagnosis Same Procedure(s) Performed Right Knee prepatellar bursectomy Surgeon Dr. 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 Developed prepatellar bursitis. He has been dealing with this for many months. He has failed conservative treatment. X-rays obtained and no bony abnormality appreciated. Surgical intervention recommended. Risks and complications discussed. Informed consent was obtained. Description of Procedure Patient was taken to the operating room and placed under general anesthesia. He was given 2 g of IV Ancef for surgical prophylaxis. Timeout performed. He was prepped and draped in routine sterile fashion. I was present during the entire case, please see Dr. Gonzalez's operative report for further detail. He was awakened and transferred to the recovery room in stable condition. I attest to the content of the Intraoperative Record and any orders documented therein. Any exceptions are noted below.
[2016-11-25 09:25] VITALS: TEMP 36.3
--- NOTE | 2016-11-25 09:41 | Anesthesia Progress Nt - [facility] ---
Anesthesia Post Op Note Date & Time Nov 25, 2016 at 09:40 Vital Signs Pain Intensity: 0 Vital Signs Past 12 Hours Date Time Temp Pulse Resp B/P (MAP) Pulse Ox O2 Delivery O2 Flow Rate FiO2 11/25/16 09:19 60 14 95 11/25/16 09:19 36.5 60 14 11/25/16 09:15 113/68 11/25/16 09:14 64 13 94 11/25/16 09:14 64 13 11/25/16 09:10 108/74 11/25/16 09:09 67 15 94 11/25/16 09:09 66 15 11/25/16 09:05 108/70 11/25/16 09:04 64 12 93 11/25/16 09:04 64 12 11/25/16 09:00 116/65 11/25/16 08:59 68 15 92 11/25/16 08:59 68 15 11/25/16 08:55 98/71 11/25/16 08:54 65 13 94 11/25/16 08:54 66 13 11/25/16 08:50 114/65 11/25/16 08:49 63 12 11/25/16 08:49 65 12 99 11/25/16 08:45 90/63 11/25/16 08:44 69 13 11/25/16 08:44 70 13 99 11/25/16 08:40 93/62 11/25/16 08:39 69 12 100 11/25/16 08:39 70 12 11/25/16 08:35 109/92 11/25/16 08:34 69 12 100 11/25/16 08:34 69 12 11/25/16 08:30 111/73 11/25/16 08:29 36.2 81 16 118/80 96 Mask 6 11/25/16 08:29 73 15 11/25/16 08:29 73 15 118/80 97 11/25/16 06:28 36.3 77 22 121/86 (98) 99 Room Air Notes Mental Status: alert / awake / arousable, participated in evaluation Pt Amnestic to Procedure: Yes Nausea / Vomiting: adequately controlled Pain: adequately controlled Airway Patency, RR, SpO2: stable & adequate BP & HR: stable & adequate Hydration State: stable & adequate Anesthetic Complications: no major complications apparent
[2016-11-25 10:15] VITALS: BP 116/77; PULSE 68; O2SAT 97
== END | disposition home or self-care (01) ==
LOC: X.SURG 06:12
PROVIDERS: ATTEND Physical Medicine & Rehabilitation Sports Medicine
DX: M70.41 Prepatellar bursitis, right knee (principal); E78.00 Pure hypercholesterolemia, unspecified; K21.9 Gastro-esophageal reflux disease without esophagitis; E03.9 Hypothyroidism, unspecified; Z79.899 Other long term (current) drug therapy

== ENCOUNTER 2017-08-24 17:10 | Emergency (ER) | payer BC ==
[~2017-08-24] VITALS: Ht 167.6 cm; Wt 82.4 kg
[~2017-08-24 17:10] MED LIST changes: -ALBUTEROL HFA INHALER 8.5 GM INH ONE; +ASPECOTC PO; -ASPI325T45 PO; -ASPI81TA28 PO; -ATROPINE SULFATE 0.1 MG/ML 5ML SYR IV PRN; -BUPIVACAINE 0.5 % 5 MG/1 ML MPF 30ML VIAL ONE; -CEFAZOLIN 2000 MG/60 ML D5W IV SCH; -CEPH500C2 PO; -DEXAMETHASONE SOD INJ 4 MG/ML VIAL ONE; -EpHEDrine SULFATE INJ 50 MG/ML AMP IV PRN; -FENTANYL CITRATE INJ 50 MCG/1 ML 2 ML VIAL ONE; -FLUMAZENIL 0.1 MG/1 ML 10 ML VIAL IV PRN; -HYDR-5688 PO; -HYDROmorphone INJ 1 MG/ML SYR IV PRN; -LABETALOL HCL IV 5 MG/ML 20ML IV PRN; -LACTATED RINGER'S 1000ML 1,000 ML IV SCH; -LIDOCAINE HCL 2% 2 ML VIAL (20MG/ML) ONE; -LIDOCAINE/EPINEPHRINE 1% INJ 50 ML VIAL ONE; -MIDAZOLAM HCL 1 MG/ML 2ML VIAL ONE; -MoRPHine SULFATE 2 MG/ML CARP IV PRN; -MoRPHine SULFATE 4 MG/ML 1 ML CARP\\VIAL IV PRN; -NALOXONE HCL 0.4 MG/1 ML VIAL/CARP IV PRN; -ONDANSETRON INJ 2 MG/ML 2 ML VIAL IV PRN; -ONDANSETRON INJ 2 MG/ML 2 ML VIAL ONE; -OXYC-57 PO; -OXYCODONE/ACETAMINOPHEN 5-325 TAB PO PRN; -PRED20TA PO; -PROMETHAZINE HCL INJ 12.5 MG in SODIUM CHLORIDE 0.9% 50ML 50 ML IV PRN; -PROPOFOL IV EMULSION 10 MG/ML 20 ML VIAL IV ONE; -SODIUM CHLORIDE 0.9% 1000ML 1,000 ML IV SCH
[2017-08-24 17:13] VITALS: TEMP 36.8; Ht 167.6 cm; Wt 82.4 kg
[2017-08-24] MEDS ORDERED: KETOROLAC TROMETHAMINE 60 MG/2 ML VIAL IM STA (17:24)
[2017-08-24] MEDS ORDERED: DEXAMETHASONE **PF** INJ 10 MG/ML VIAL IM STA (17:24)
[2017-08-24] MEDS ORDERED: AZITTAB PO (17:53)
[2017-08-24] MEDS ORDERED: HYDROmorphone INJ 1 MG/ML SYR IM STA (18:25)
[2017-08-24 18:41] VITALS: PULSE 69; O2SAT 96
[2017-08-24] MEDS ORDERED: HYDROmorphone INJ 1 MG/ML SYR IV STA (19:04)
[2017-08-24 19:19] VITALS: O2SAT 98
[2017-08-24 19:21] LABS: BASO % 0.3 %; BASO ABS # 0.03 K/uL (0-0.2); EOS % 1.1 %; EOS ABS # 0.13 K/uL (0-0.5); HEMOGLOBIN 14.3 g/dL (14.0-18.0); IG# 0.02 K/uL (0.00-0.02); LYMPH % 26.2 %; LYMPH ABS # 3.11 K/uL (1.2-3.4); MEAN CORPUSCULAR HGB CONC 35.8 g/dl (32-36); MEAN PLATELET VOLUME 9.4 fL (7.4-10.4); MONO % 8.1 %; MONO ABS # 0.96 K/uL (0.11-0.59); NEUT % 64.1 %; NEUT ABS # 7.64 K/uL (1.4-6.5); PLATELET COUNT 207 K/uL (130-400); RED CELL DISTRIBUTION WIDTH CV 12.8 % (11.5-14.5); RED CELL DISTRIBUTION WIDTH SD 38.6 fL (36.4-46.3); WHITE BLOOD COUNT 11.89 K/uL (4.8-10.8)
--- NOTE | 2017-08-24 19:28 | DIAGNOSTIC IMAGING REPORT ---
L-SPINE MIN 4 VIEWS ROUTINE HISTORY: 46 years-old Male Low back pain, radiating down legs to knees bilat acute low back pain COMPARISON: Lumbar spine radiographs 11/08/2016 TECHNIQUE: 5 views of the lumbar spine FINDINGS: There are 5 nonrib-bearing lumbar type vertebral segments present. Prior discectomy with posterior decompression and interbody pascual and screw fusion at L5-S1. No evidence of hardware complication or malalignment. Mild multilevel spondylitic spurring without significant intervertebral disc space narrowing. Mild intervertebral disc space narrowing is seen at the T11-T12 interspace. Minimal facet arthrosis of the mid lumbar spine. No spondylolysis or spondylolisthesis. The soft tissues are unremarkable. IMPRESSION: No acute fracture or subluxation. The above report was generated using voice recognition software. It may contain grammatical, syntax or spelling errors. Electronically signed by: Roddy Gabriel M.D. 08/24/2017 7:27 PM Dictated Date/Time: 08/24/2017 7:24 PM
[2017-08-24 19:38] LABS: CALCIUM 8.9 mg/dl (8.5-10.1); CREATININE 1.28 mg/dl (0.60-1.40); POTASSIUM 3.9 mmol/L (3.5-5.1)
[2017-08-24] MEDS ORDERED: OXYC1TAB3 PO (19:59)
--- NOTE | 2017-08-24 20:00 | EMERGENCY ROOM VISIT NOTE ---
ED Visit Note First contact with patient: 17:16 CHIEF COMPLAINT: "Back problems". HISTORY OF PRESENT ILLNESS: This 46-year-old male patient presents to the emergency department via private vehicle complaining of pain in the low back which began over the past 3 weeks but notes a history of chronic back problems. The pain was gradual in onset, is now constant and worse with movement. The patient notes the pain as sharp radiating into the buttock and down the legs to the level of the knees bilaterally and a 5/10. The patient has taken steroids, muscle relaxers without relief of the pain. The patient denies any loss of control of their bowel or bladder functions. There has been no genitourinary change in sensation. No nausea or vomiting or abdominal pain. No chest pain or shortness of breath. The patient has previous had prior back injuries. No dysuria or increased urinary frequency. He denies any trauma or injury recently. 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 REVIEW OF SYSTEMS: A review of systems was performed with positives and pertinent negatives listed in the history of present illness. All other systems were reviewed and are negative. ALLERGIES: As noted below MEDICATIONS: As noted below PMH: Previous spinal surgery SOCIAL HISTORY: Patient is self-employed and lives locally. PHYSICAL EXAM: VITALS: Vitals are noted on the nurse's note and reviewed by myself. Vital signs stable. GENERAL: 46-year-old male, in no acute distress, nondiaphoretic, well-developed well-nourished. He is able to stand and ambulate. SKIN: The skin was without rashes, erythema, edema, or bruising. Capillary refill less than 2 seconds. NECK: Supple without nuchal rigidity. No cervical spine tenderness. No paraspinous muscle tenderness. HEART: Regular rate and rhythm without murmurs gallops or rubs. LUNGS: Clear to auscultation bilaterally without wheezes, rales or rhonchi. ABDOMEN: Positive bowel sounds x 4. Normal tympanic percussion. Soft, nontender, without masses or organomegaly. Bailey sign negative. MUSCULOSKELETAL: No muscle atrophy, erythema, or edema noted of the back. There is positive tenderness over the lumbar spinous processes. There is positive tenderness over the paraspinous muscles of the lumbar spine. There is no tenderness over the thoracic spine paraspinous muscles. There are no muscle spasms present. The patient is slow to move around with maximum tenderness with in the lumbar region. NEURO: Sensory neuro intact. Deep tendon reflexes 2+ in the lower extremities. Strength 5/5 and equal in the bilateral lower extremities. EMERGENCY DEPARTMENT COURSE: Patient was seen and evaluated as above. He presents to us today with low back pain. He is able to ambulate. He is afebrile and has no abdominal pain. No evidence of cauda equina syndrome. X- ray was obtained of the L-spine with results as above. No acute process. Hardware is intact. I do not believe that MRI is warranted at this time. He was given IM Toradol, Decadron and Dilaudid. No relief of his pain. IV access was then obtained. He was then given Dilaudid IV. Based on labs were obtained. Minimal leukocytosis which I suspect is likely secondary to his underlying current steroid prescription. In addition, there is evidence of dehydration with BUN elevation. Creatinine stable. I believe he is dehydrated. He will p.o. hydrate and have this rechecked with the family doctor. He will follow-up with the program research specialist and family doctor or return with worsening. He was educated upon management, educated upon worrisome symptoms which to return, had questions in spite of discharge, and was discharged home in good condition. He will be given a short prescription of pain medication and there were no red flags noted in the [place] drug monitoring system In the evaluation and treatment of this patient the following differential diagnosis entertained: Lumbar sprain, fracture, dislocation, subluxation, cauda equina syndrome, acute abdominal process, AAA, among others. Problem List Medical Problems: (1) Bursitis, knee Status: Resolved (2) Hypothyroid Status: Chronic Surgical Problems: (1) S/P lumbar spinal fusion Status: Resolved Current/Historical Medications Scheduled Azithromycin (Zithromax Z-Azar), 1 PKT PO UD Cyclobenzaprine Hcl (Flexeril), 10 MG PO TID Scheduled PRN Oxycodone Ir (Roxicodone Ir), 1-2 TAB PO Q4H PRN for Pain Allergies Coded Allergies: Adhesives (Verified Allergy, Intermediate, OLD CHEWY TAPE-KEITH SKIN, 08/24) NO KNOWN DRUG ALLERGIES (Verified Allergy, Unknown, NONE, 08/24/17) Vital Signs Date Time Temp Pulse Resp B/P (MAP) Pulse Ox O2 Delivery O2 Flow Rate FiO2 08/24/17 20:07 147/95 08/24/17 19:19 98 Room Air 08/24/17 18:41 69 18 140/98 96 08/24/17 17:13 36.8 85 20 147/91 98 Room Air Laboratory Results 08/24/17 19:10 Red Blood Count 4.76, Mean Corpuscular Volume 84.0, Mean Corpuscular Hemoglobin 30.0, Mean Corpuscular Hemoglobin Concent 35.8, Mean Platelet Volume 9.4, Neutrophils (%) (Auto) 64.1, Lymphocytes (%) (Auto) 26.2, Monocytes (%) (Auto) 8.1, Eosinophils (%) (Auto) 1.1, Basophils (%) (Auto) 0.3, Neutrophils # (Auto) 7.64, Lymphocytes # (Auto) 3.11, Monocytes # (Auto) 0.96, Eosinophils # (Auto) 0.13, Basophils # (Auto) 0.03 08/24/17 19:10 Test 08/24/17 19:10 White Blood Count 11.89 K/uL (4.8-10.8) Red Blood Count 4.76 M/uL (4.7-6.1) Hemoglobin 14.3 g/dL (14.0-18.0) Hematocrit 40.0 % (42-52) Mean Corpuscular Volume 84.0 fL (80-100) Mean Corpuscular Hemoglobin 30.0 pg (25-34) Mean Corpuscular Hemoglobin Concent 35.8 g/dl (32-36) Platelet Count 207 K/uL (130-400) Mean Platelet Volume 9.4 fL (7.4-10.4) Neutrophils (%) (Auto) 64.1 % Lymphocytes (%) (Auto) 26.2 % Monocytes (%) (Auto) 8.1 % Eosinophils (%) (Auto) 1.1 % Basophils (%) (Auto) 0.3 % Neutrophils # (Auto) 7.64 K/uL (1.4-6.5) Lymphocytes # (Auto) 3.11 K/uL (1.2-3.4) Monocytes # (Auto) 0.96 K/uL (0.11-0.59) Eosinophils # (Auto) 0.13 K/uL (0-0.5) Basophils # (Auto) 0.03 K/uL (0-0.2) RDW Standard Deviation 38.6 fL (36.4-46.3) RDW Coefficient of Variation 12.8 % (11.5-14.5) Immature Granulocyte % (Auto) 0.2 % Immature Granulocyte # (Auto) 0.02 K/uL (0.00-0.02) Anion Gap 6.0 mmol/L (3-11) Est Creatinine Clear Calc Drug Dose 73.4 ml/min Estimated GFR () 77.8 Estimated GFR (Non- 67.1 BUN/Creatinine Ratio 21.6 (10-20) Calcium Level 8.9 mg/dl (8.5-10.1) Medications Administered Medications (Trade) Dose Ordered Sig/Tsering Route Start Time Stop Time Status Last Admin Dose Admin Ketorolac Tromethamine (Toradol Inj) 60 mg NOW STAT IM 08/24/17 17:24 08/24/17 17:26 DC 08/24/17 17:47 60 MG Dexamethasone Sodium Phosphate (Dexamethasone Inj Pf) 10 mg NOW STAT IM 08/24/17 17:24 08/24/17 17:26 DC 08/24/17 17:47 10 MG Hydromorphone HCl (Dilaudid Inj) 1 mg NOW STAT IM 08/24/17 18:25 08/24/17 18:26 DC 08/24/17 18:39 1 MG Hydromorphone HCl (Dilaudid Inj) 1 mg NOW STAT IV 08/24/17 19:04 08/24/17 19:06 DC 08/24/17 19:19 1 MG Departure Information Impression Primary Impression: Low back pain Additional Impression: S/P lumbar spinal fusion Dispostion Home / Self-Care Condition GOOD Prescriptions Oxycodone Ir (Roxicodone Ir) 5 Mg Tab 1-2 TAB PO Q4H Y for Pain, #15 TAB For Initial Treatment Prov: Sanjeev Broussard PA-C 08/24/17 Referrals No Doctor, Assigned (PCP) Daniel Bolanos D.O. Patient Instructions My [facility] Additional Instructions You have been treated in the Emergency Department for Back Pain. You have received pain medicine in the emergency department which impairs your ability to operate a vehicle. It is illegal for you to drive after receiving these medicines. You have been prescribed Oxy IR to be used for pain control. This is a narcotic medication. You cannot drive or consume alcohol while on this medicine. This medicine should only be used for pain that cannot be controlled with over-the- counter pain medicines. For pain control, you can use the following [id number] medicines (if >12 yo): - Regular strength (325mg/tab) Tylenol (acetaminophen) 2 tabs every 4-6 hours as needed. Do not exceed 12 tablets in a 24 hour period. Avoid taking more than 3 grams (3000 mg) of Tylenol per day. This includes any other sources of acetaminophen you may take on a regular basis. - Regular strength (200 mg/tab) Advil (ibuprofen) 1-2 tabs every 4-6 hours as needed. Do not exceed a dose of 3200 mg per day. If this is an acute injury, ice can be applied to the area of pain for the first 3 days to help decrease pain and inflammation. After the first 3 days, a heating pad can be used over the area for continued soothing relief. You should schedule a follow-up appointment in 2-3 days with your Primary Care Provider for further evaluation and treatment of your back pain. Return to the Emergency Department if your current symptoms worsen despite treatment course outlined above, or if you develop any of the following symptoms : intractable pain despite aforementioned treatment course, loss of control of your bowel or bladder, numbness or tingling in your groin, or development of a fever. Problem Qualifiers
[2017-08-24 20:07] VITALS: BP 147/95
== END 2017-08-24 20:05 | disposition home or self-care (01) ==
LOC: C.EDB 17:13 → C.EDD 20:05
DX: M54.5 Low back pain (principal); Z98.890 Other specified postprocedural states; Z98.1 Arthrodesis status; E03.9 Hypothyroidism, unspecified; Z91.048 Other nonmedicinal substance allergy status